=== PATIENT | female | born 1950 | race Caucasian/White ===

== ENCOUNTER 2016-07-31 18:33 | Emergency (ER) | payer MEDICARE, OTHER ==
[~2016-07-31] VITALS: Ht 160 cm; Wt 74.4 kg
[2016-07-31] MEDS ORDERED: CLINDAMYCIN 150 MG CAP PO ONE (20:00)
[2016-07-31 20:13] LABS: BASO % 0.7 % (0.0-1.0); EOS % 0.8 % (0.0-3.0); LARGE UNSTAINED CELL # 0.2 K/mm3 (0.0-0.4); LARGE UNSTAINED CELL % 3.8 % (0.0-4.0); LYMPH # 1.4 K/mm3 (1.5-4.5); LYMPH % 32.7 % (24.0-44.0); MEAN CORPUSCULAR HEMOGLOBIN 28.7 pg (27.0-33.0); MEAN CORPUSCULAR HGB CONC 33.7 g/dl (32.0-36.5); MEAN CORPUSCULAR VOLUME 85.2 fl (80.0-96.0); MONO # 0.2 K/mm3 (0.0-0.8); MONO % 6.2 % (0.0-5.0); NEUTROPHILS # 2.2 K/mm3 (1.8-7.7); NEUTROPHILS % 55.8 % (36.0-66.0); PLATELET COUNT, AUTOMATED 151 k/mm3 (150-450); RED CELL DISTRIBUTION WIDTH 12.8 % (11.5-14.5); WHITE BLOOD COUNT 3.9 K/mm3 (4.0-10.0)
--- NOTE | 2016-07-31 21:00 | REPUSA ---
Clinical history: mandibular abscess/mass. Findings: Real-time ultrasound imaging of the left mandible was performed. Normal heterogeneous fibro glandular tissue is noted. No focal defined mass or cystic lesion is appreciated. No evidence of calc ifications are appreciated. Several prominent lymph nodes are noted, the largest measuring 1.1 x 0.8 x 0.7 cm. Impression: No abscess or mass identified. Several subcentimeter submandibular lymph nodes appreciate d.
[2016-07-31] MEDS ORDERED: CLEO300C2 PO (21:18)
[2016-07-31 21:40] VITALS: BP 150/80
== END 2016-07-31 21:41 | disposition home or self-care (01) ==
LOC: M ED 20:16
DX: L03.211 Cellulitis of face (principal); K08.409 Partial loss of teeth, unspecified cause, unspecified class; Z87.891 Personal history of nicotine dependence; Z88.0 Allergy status to penicillin; Z88.1 Allergy status to other antibiotic agents; Z88.2 Allergy status to sulfonamides

== ENCOUNTER → 2016-10-12 | Outpatient (CLI) | payer MEDICARE ==
[~2016-10-12] MED LIST: CLEO300C2 PO
--- NOTE | 2016-10-12 19:15 | REP ---
Chest two views HISTORY: Chest pain Comparison: 01/03/2015 A minimal increase in interstitial markings is present in the lungs consistent with chronic interstitial change. The heart is normal in size. The pulmonary vasculature is normal in appearance. The bony structure is intact. IMPRESSION: Chronic interstitial change. Signed by Evert Dimas MD 10/12/2016 07:06 P
== END ==
LOC: M WUC 18:41
PROVIDERS: ATTEND Physician Assistant
DX: R07.9 Chest pain, unspecified (principal)

== ENCOUNTER 2016-11-12 20:40 | Emergency (ER) | payer MEDICARE ==
[~2016-11-12] VITALS: Ht 160 cm; Wt 75.3 kg
[2016-11-12 22:24] LABS: BASO % 0.6 % (0.0-1.0); EOS # 0.1 K/mm3 (0.0-0.50); EOS % 2.5 % (0.0-3.0); LARGE UNSTAINED CELL # 0.1 K/mm3 (0.0-0.4); LARGE UNSTAINED CELL % 2.4 % (0.0-4.0); LYMPH # 1.7 K/mm3 (1.5-4.5); LYMPH % 28.7 % (24.0-44.0); MEAN CORPUSCULAR HGB CONC 34.3 g/dl (32.0-36.5); MEAN CORPUSCULAR VOLUME 87.2 fl (80.0-96.0); MONO # 0.2 K/mm3 (0.0-0.8); MONO % 3.9 % (0.0-5.0); NEUTROPHILS # 3.3 K/mm3 (1.8-7.7); NEUTROPHILS % 61.9 % (36.0-66.0); PLATELET COUNT, AUTOMATED 213 k/mm3 (150-450); RED CELL DISTRIBUTION WIDTH 13.5 % (11.5-14.5); WHITE BLOOD COUNT 5.3 K/mm3 (4.0-10.0)
[2016-11-12 22:48] LABS: MAGNESIUM LEVEL 2.1 MG/DL (1.8-2.4); PHOSPHORUS LEVEL 2.6 MG/DL (2.5-4.9)
[2016-11-12 22:53] LABS: ANION GAP 6 MEQ/L (8-16); BLOOD UREA NITROGEN 16 MG/DL (7-18); CALCIUM LEVEL 10.1 MG/DL (8.8-10.2); CARBON DIOXIDE LEVEL 23 MEQ/L (21-32); CHLORIDE LEVEL 112 MEQ/L (98-107); CREATININE FOR GFR 0.55 MG/DL (0.55-1.02); FREE T4 0.94 NG/DL (0.76-1.46); GLOMERULAR FILTRATION RATE > 60.0 (>45); GLUCOSE, FASTING 97 MG/DL (80-110); POTASSIUM SERUM 3.6 MEQ/L (3.5-5.1); SODIUM LEVEL 141 MEQ/L (136-145)
[2016-11-12 23:43] VITALS: BP 128/69
--- NOTE | 2016-11-13 06:36 | ECGEPIP ---
Stationary ECG Study [facility] - ED Test Date: 2016-11-12 Pat Name: BARBARA FOSTER Department: Room: - Gender: F [employer] Paver: tr : 1950 Requested By: BYRON Ferreira Order Number: [id number] Reading MD: Chito Manuel Measurements Intervals [place] Rate: 70 P: 66 MS: 168 QRS: 35 QRSD: 89 T: 57 QT: 374 QTc: 405 Interpretive Statements SINUS RHYTHM NSTTW ABNORMALITIES Electronically Signed On 11-13-2016 6:36:35 EDT by Chito Manuel
--- NOTE | 2016-11-13 09:05 | REP ---
TWO VIEW CHEST: COMPARISON: 10/12/2016. Two views of the chest are performed. There is mild apical pleural scarring and thickening. There is mild bibasilar interstitial fibrotic scarring. There is no acute infiltrate. Heart is normal in size. Mediastinal silhouette is unremarkable and unchanged. There are minor degenerative changes of the spine. IMPRESSION: Mild chronic changes without evidence of acute pulmonary disease. Signed by Dallin Colon MD 11/13/2016 05:21 P
== END 2016-11-13 | disposition home or self-care (01) ==
LOC: M ED 20:40
DX: R00.2 Palpitations (principal); R94.31 Abnormal electrocardiogram [ECG] [EKG]; I10 Essential (primary) hypertension; J45.909 Unspecified asthma, uncomplicated; M54.5 Low back pain; Z88.0 Allergy status to penicillin; Z88.2 Allergy status to sulfonamides; Z88.1 Allergy status to other antibiotic agents

== ENCOUNTER → 2016-12-02 | Outpatient (REF) | payer MEDICARE ==
[~2016-12-02] MED LIST changes: +CHEW500C2 PO; +TYLE325T5 PO
== END ==
LOC: M SFHCWAGY 15:15
PROVIDERS: ATTEND Nurse Practitioner Family
DX: Z12.4 Encounter for screening for malignant neoplasm of cervix (principal)

== ENCOUNTER → 2016-12-08 | Outpatient (CLI) | payer MEDICARE ==
--- NOTE | 2016-12-10 10:52 | DEXA ---
AP SPINE L1 - L4 0.802 -3.2 -1.6 LT FEMUR TOTAL 0.670 -2.7 -1.4 RT FEMUR TOTAL 0.703 -2.4 -1.2 TOTAL BODY TOTAL OTHER DUAL FEMUR FRAX* ASSESSMENT Risk factors: Not performed. 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 FOLLOW-UP: Recommendation for the next bone density exam: 2 years. MTDD
== END ==
LOC: M WHC 14:08
PROVIDERS: ATTEND Nurse Practitioner Family
DX: N95.9 Unspecified menopausal and perimenopausal disorder (principal); M81.0 Age-related osteoporosis without current pathological fracture

== ENCOUNTER → 2017-01-18 | Outpatient (CLI) | payer MEDICARE ==
[2017-01-18 10:12] LABS: BASO % 0.8 % (0.0-1.0); EOS # 0.1 K/mm3 (0.0-0.50); EOS % 3.2 % (0.0-3.0); LARGE UNSTAINED CELL # 0.1 K/mm3 (0.0-0.4); LARGE UNSTAINED CELL % 2.2 % (0.0-4.0); LYMPH # 1.4 K/mm3 (1.5-4.5); LYMPH % 29.2 % (24.0-44.0); MEAN CORPUSCULAR HEMOGLOBIN 29.4 pg (27.0-33.0); MEAN CORPUSCULAR HGB CONC 33.5 g/dl (32.0-36.5); MEAN CORPUSCULAR VOLUME 87.9 fl (80.0-96.0); MONO # 0.2 K/mm3 (0.0-0.8); MONO % 4.8 % (0.0-5.0); NEUTROPHILS # 2.6 K/mm3 (1.8-7.7); NEUTROPHILS % 59.8 % (36.0-66.0); PLATELET COUNT, AUTOMATED 213 k/mm3 (150-450); RED CELL DISTRIBUTION WIDTH 12.9 % (11.5-14.5); WHITE BLOOD COUNT 4.4 K/mm3 (4.0-10.0)
[2017-01-18 10:33] LABS: ALBUMIN 3.7 GM/DL (3.2-5.2); ALBUMIN/GLOBULIN RATIO 1.16 (1.00-1.93); ALKALINE PHOSPHATASE 108 U/L (45-117); ALT/SGPT 27 U/L (12-78); ANION GAP 8 MEQ/L (8-16); AST/SGOT 9 U/L (15-37); BILIRUBIN,TOTAL 0.3 MG/DL (0.2-1.0); BLOOD UREA NITROGEN 13 MG/DL (7-18); CARBON DIOXIDE LEVEL 25 MEQ/L (21-32); CHLORIDE LEVEL 112 MEQ/L (98-107); CREATININE FOR GFR 0.59 MG/DL (0.55-1.02); GLOMERULAR FILTRATION RATE > 60.0 (>45); GLUCOSE, FASTING 75 MG/DL (80-110); POTASSIUM SERUM 4.1 MEQ/L (3.5-5.1); SODIUM LEVEL 145 MEQ/L (136-145); TOTAL PROTEIN 6.9 GM/DL (6.4-8.2)
[2017-01-18 10:44] LABS: ERYTHROCYTE SEDIMENTATION RATE 6 mm/hr (0-30)
== END ==
LOC: M LAB 09:10
PROVIDERS: ATTEND Psychiatry & Neurology Neurology
DX: R51 Headache (principal)

== ENCOUNTER 2017-01-25 22:21 | Emergency (ER) | payer MEDICARE ==
[~2017-01-25] VITALS: Ht 160 cm; Wt 72.7 kg
[~2017-01-25 22:21] MED LIST changes: -CHEW500C2 PO; -TYLE325T5 PO
[2017-01-25] MEDS ORDERED: CHEW500C2 PO (22:39)
[2017-01-25] MEDS ORDERED: TYLE325T5 PO (22:49)
--- NOTE | 2017-01-26 00:30 | REPUSA ---
CLINICAL HISTORY: Headaches. TECHNIQUE: Multiple axial brain CT scan sections were obtained from base to vertex without contrast a dministration. COMMENTS: The study shows normal configuration of sella turcica. There are no intra or extra-axial collections. There is no mass effect or midline shift. There is no evidence of hematoma formation. No hydrocephal us is present. No abnormal calcifications are noted. No significant abnormalities are seen either in the posterior fossa or supratentorial compartment. The sinuses and mastoid air cells are patent. IMPRESSION: No evidence of acute intracranial pathology. No changes noted since the prior exam on 07/24/2008. Thank you for your kind referral of this patient.
[2017-01-26 01:56] VITALS: BP 176/73
== END 2017-01-26 02:03 | disposition home or self-care (01) ==
LOC: M ED 22:21
DX: G43.909 Migraine, unspecified, not intractable, without status migrainosus (principal); Z79.899 Other long term (current) drug therapy; Z88.0 Allergy status to penicillin; Z88.2 Allergy status to sulfonamides; Z88.1 Allergy status to other antibiotic agents

== ENCOUNTER 2018-05-23 20:58 | Emergency (ER) | payer MEDICARE, OTHER ==
[~2018-05-23] VITALS: Ht 160 cm; Wt 70.0 kg
[~2018-05-23 20:58] MED LIST changes: +CHEW500C2 PO; +TYLE325T5 PO
[2018-05-23] MEDS ORDERED: VITA200016 PO (21:01)
[2018-05-23 21:43] LABS: BASO % 0.6 % (0.0-1.0); EOS # 0.2 10^3/uL (0.0-0.50); EOS % 3.2 % (0.0-3.0); HEMOGLOBIN 13.1 g/dl (12.0-15.5); LYMPH # 2.1 10^3/uL (1.5-4.5); LYMPH % 33.3 % (24.0-44.0); MEAN CORPUSCULAR HEMOGLOBIN 28.4 pg (27.0-33.0); MEAN CORPUSCULAR HGB CONC 32.8 g/dl (32.0-36.5); MEAN CORPUSCULAR VOLUME 86.8 fl (80.0-96.0); MONO # 0.3 10^3/uL (0.0-0.8); MONO % 5.3 % (0.0-5.0); NEUTROPHILS # 3.6 10^3/uL (1.8-7.7); NEUTROPHILS % 57.3 % (36.0-66.0); PLATELET COUNT, AUTOMATED 239 10^3/uL (150-450); RED BLOOD COUNT 4.61 10^6/uL (4.00-5.40); WHITE BLOOD COUNT 6.3 10^3/uL (4.0-10.0)
[2018-05-23 21:53] LABS: INR 1.09; PROTHROMBIN TIME 14.2 SECONDS (12.1-14.4)
[2018-05-23 21:54] LABS: PARTIAL THROMBOPLASTIN TIME 32.7 SECONDS (25.4-37.6)
[2018-05-23 22:13] LABS: BLOOD UREA NITROGEN 12 MG/DL (7-18); CALCIUM LEVEL 9.7 MG/DL (8.8-10.2); CARBON DIOXIDE LEVEL 24 MEQ/L (21-32); CHLORIDE LEVEL 110 MEQ/L (98-107); CK-MB VALUE MASS < 1.0 NG/ML (<3.6); CPK CREATINE PHOSPHOKINASE 46 U/L (26-192); CREATININE FOR GFR 0.74 MG/DL (0.55-1.30); GLOMERULAR FILTRATION RATE > 60.0 (>45); GLUCOSE, FASTING 112 MG/DL (70-100); MB/CK RELATIVE INDEX 2.17 (< OR =4); POTASSIUM SERUM 4.3 MEQ/L (3.5-5.1); SODIUM LEVEL 140 MEQ/L (136-145); TROPONIN I < 0.02 NG/ML (< 0.10)
[2018-05-23] MEDS ORDERED: ISOVUE-370 76% 100ML VIAL (Q9967) As Ordered ONE (23:42)
--- NOTE | 2018-05-23 23:59 | REPVR ---
EXAM: CT Angiography Chest With Contrast EXAM DATE/TIME: 05/23/2018 11:02 PM CLINICAL HISTORY: 67 years old, female; Pain; Chest pain; Type not specified; Additional info: Dysp TECHNIQUE: Axial computed tomographic angiography images of the chest with intravenous contrast using CT angiography protocol. All CT scans at this facility use at least one of these dose optimization techniques: automated exposure control; mA and/or kV adjustment per patient size (includes targeted exams where dose is matched to clinical indication); or iterative reconstruction. Coronal and sagittal reformatted images were created and reviewed. MIP reconstructed images were created and reviewed. CONTRAST: 75 ml of iso administered intravenously. COMPARISON: CR Chest, 2 view PA, Lat 11/12/2016 10:34 PM FINDINGS: Pulmonary arteries: No pulmonary embolus. Aorta: No aortic dissection or aneurysm. The aorta demonstrates mild atherosclerotic calcification. Lungs: Bilateral apical pleural-parenchymal scarring. Bilateral groundglass opacities may represent mosaic perfusion versus atelectasis. Pleural space: Normal. No pneumothorax. No pleural effusion. Heart: Normal. No cardiomegaly. No pericardial effusion. Gallbladder and bile ducts: Cholelithiasis. Lymph nodes: Unremarkable. No enlarged lymph nodes. Bones/joints: The spine demonstrates mild degenerative changes. Soft tissues: Unremarkable. IMPRESSION: 1. No pulmonary embolus. 2. No aortic dissection or aneurysm. 3. Possible mosaic perfusion as described above. Electronically signed by: Armando Powell On 05/23/2018 23:59:11 PM
[2018-05-24] VITALS: BP 180/87
--- NOTE | 2018-05-25 13:40 | ED PDOC ---
Post-Departure Follow-Up dr solomon faxed formal report of cta for fu Sheba Quezada MD May 25, 2018 13:40
--- NOTE | 2018-05-25 17:22 | ECGEPIP ---
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
== END 2018-05-24 00:33 | disposition home or self-care (01) ==
LOC: M ED 20:58
DX: F41.9 Anxiety disorder, unspecified (principal); R94.31 Abnormal electrocardiogram [ECG] [EKG]; Z88.0 Allergy status to penicillin; Z88.1 Allergy status to other antibiotic agents; Z88.2 Allergy status to sulfonamides
CPT/HCPCS: 36415; 36600; 71275; 80048; 82550; 82553; 84484; 85025; 85610; 85730; 93005; 99284; Q9967

== ENCOUNTER → 2018-09-15 | Outpatient (CLI) | payer OTHER ==
[~2018-09-15] MED LIST changes: +METHACHOLINE KIT (J7674) INH ONE; +VITA200016 PO
--- NOTE | 2018-09-15 14:42 | PFTRPT ---
Height: 63.00 Inches Weight: 158.00 Lbs BSA: 1.75 Diagnosis: R06.00 DATE OF STUDY: 09/15/2018 ORDERED BY: Aileen Rodriguez INTERPRETATION: Study of excellent technical quality. Under protocol, methacholine was administered. At a dose of 2.5 mg (13.875 CDUs), a 23% decline in the FEV1 was noted. PC of 1.53 is significant. Flow rates did return to baseline post bronchodilator administration. IMPRESSION: Positive methacholine challenge study. MTDD
== END ==
LOC: M CARPUL 13:42
PROVIDERS: ATTEND Nurse Practitioner Family
DX: R94.2 Abnormal results of pulmonary function studies (principal)
CPT/HCPCS: 94070; 95070; J7674

== ENCOUNTER 2018-11-26 09:23 | Emergency (ER) | payer OTHER ==
[~2018-11-26] VITALS: Ht 160 cm; Wt 69.5 kg
[~2018-11-26 09:23] MED LIST changes: -METHACHOLINE KIT (J7674) INH ONE
[2018-11-26] MEDS ORDERED: ISOVUE-370 76% 100ML VIAL (Q9967) As Ordered ONE (12:20)
[2018-11-26 12:24] LABS: HEMATOCRIT 43.4 % (36.0-47.0); HEMOGLOBIN 14.2 g/dl (12.0-15.5); MEAN CORPUSCULAR HEMOGLOBIN 29.1 pg (27.0-33.0); MEAN CORPUSCULAR HGB CONC 32.7 g/dl (32.0-36.5); MEAN CORPUSCULAR VOLUME 88.9 fl (80.0-96.0); PLATELET COUNT, AUTOMATED 218 10^3/uL (150-450); RED BLOOD COUNT 4.88 10^6/uL (4.00-5.40); WHITE BLOOD COUNT 5.4 10^3/uL (4.0-10.0)
[2018-11-26 12:39] LABS: BLOOD UREA NITROGEN 11 MG/DL (7-18); CARBON DIOXIDE LEVEL 27 MEQ/L (21-32); CHLORIDE LEVEL 112 MEQ/L (98-107); CREATININE FOR GFR 0.55 MG/DL (0.55-1.30); GLOMERULAR FILTRATION RATE > 60.0 (>45); GLUCOSE, FASTING 86 MG/DL (70-100); POTASSIUM SERUM 4.3 MEQ/L (3.5-5.1); SODIUM LEVEL 142 MEQ/L (136-145)
--- NOTE | 2018-11-26 14:08 | REPVR ---
EXAM: CT Neck With Contrast EXAM DATE/TIME: 11/26/2018 12:22 PM CLINICAL HISTORY: 68 years old, female; Dysphagia / difficulty swallowing; Additional info: Dysphagia, RO food impaction TECHNIQUE: Imaging protocol: Axial computed tomography images of the neck with intravenous contrast. Coronal and sagittal reformatted images were created and reviewed. Radiation optimization: All CT scans at this facility use at least one of these dose optimization techniques: automated exposure control; mA and/or kV adjustment per patient size (includes targeted exams where dose is matched to clinical indication); or iterative reconstruction. Contrast material: ISOVUE 370;Contrast volume: 75 ml;Contrast route: IV; COMPARISON: Thyroid, ST head+neck US 07/31/2016 8:37 PM FINDINGS: Nasopharynx: Normal. Oropharynx: Normal. No significant tonsillar enlargement. Hypopharynx: Normal. Larynx: Normal. Normal epiglottis. Retropharyngeal space: Normal. Submandibular/Parotid glands: Normal. Glands are normal in size. Thyroid: Normal. No enlarged or calcified nodules. Lymph nodes: Normal. No lymphadenopathy. Trachea: Visualized trachea is unremarkable. Lungs: Normal as visualized. Bones/joints: Degenerative changes noted of the cervical spine. Straightening of the normal cervical lordosis. Soft tissues: Normal. No significant soft tissue swelling. IMPRESSION: No acute findings. No evidence of food impaction in the visualized portion of the esophagus Electronically signed by: Leilani Hernandez On 11/26/2018 14:07:59 PM
[2018-11-26 14:20] VITALS: BP 164/87
== END 2018-11-26 14:23 | disposition home or self-care (01) ==
LOC: M ED 09:23
DX: R13.10 Dysphagia, unspecified (principal); J45.909 Unspecified asthma, uncomplicated; I10 Essential (primary) hypertension; Z88.0 Allergy status to penicillin; Z88.1 Allergy status to other antibiotic agents; Z88.2 Allergy status to sulfonamides
CPT/HCPCS: 36415; 70491; 80047; 80048; 85027; 99284; Q9967

== ENCOUNTER 2018-12-27 09:11 | Emergency (ER) | payer OTHER ==
[~2018-12-27] VITALS: Ht 160 cm; Wt 74.1 kg
[2018-12-27 09:55] LABS: BASO % 0.6 % (0.0-1.0); EOS # 0.1 10^3/uL (0.0-0.50); EOS % 2.1 % (0.0-3.0); HEMATOCRIT 40.4 % (36.0-47.0); HEMOGLOBIN 13.3 g/dl (12.0-15.5); LYMPH # 1.1 10^3/uL (1.5-4.5); LYMPH % 16.6 % (24.0-44.0); MEAN CORPUSCULAR HEMOGLOBIN 29.2 pg (27.0-33.0); MEAN CORPUSCULAR HGB CONC 32.9 g/dl (32.0-36.5); MEAN CORPUSCULAR VOLUME 88.8 fl (80.0-96.0); MONO # 0.2 10^3/uL (0.0-0.8); MONO % 3.6 % (0.0-5.0); NEUTROPHILS # 5.1 10^3/uL (1.8-7.7); NEUTROPHILS % 76.4 % (36.0-66.0); PLATELET COUNT, AUTOMATED 198 10^3/uL (150-450); RED BLOOD COUNT 4.55 10^6/uL (4.00-5.40); WHITE BLOOD COUNT 6.7 10^3/uL (4.0-10.0)
[2018-12-27 10:06] LABS: INR 1.12; PARTIAL THROMBOPLASTIN TIME 32.2 SECONDS (25.0-38.4); PROTHROMBIN TIME 14.1 SECONDS (11.8-14.0)
[2018-12-27 10:17] LABS: ALBUMIN 3.7 GM/DL (3.2-5.2); BILIRUBIN,DIRECT 0.1 MG/DL (0.0-0.2); BILIRUBIN,TOTAL 0.4 MG/DL (0.2-1.0); TOTAL PROTEIN 6.5 GM/DL (6.4-8.2)
--- NOTE | 2018-12-27 10:26 | REP ---
CT of the head without contrast Indication: Fall. Comparison: Head CT of 01/25/2017. Technique: Axial CT of the head was performed without contrast. Findings: There is posterior scalp soft tissue swelling/hematoma at the vertex without underlying calvarial fracture. There is no evidence of acute intracranial hemorrhage or extra-axial fluid collection. Colon-white matter differentiation is maintained. There is no mass effect or midline shift. The basal cisterns are patent. There is no hydrocephalus. The visualized paranasal sinuses and mastoid air cells are clear. Impression: Posterior scalp soft tissue swelling/hematoma at the vertex without underlying calvarial fracture. No acute intracranial abnormality. Electronically Signed by Patricia Leary MD 12/27/2018 10:18 A
--- NOTE | 2018-12-27 10:36 | REP ---
CT of the cervical spine without contrast Indication: Fall. Comparison: CT of the cervical spine 01/19/2013. Technique: Axial CT and cervical spine was performed without contrast. Bone reformatted images were provided in the axial, coronal and sagittal planes. Findings: There is no acute fracture or subluxation of the cervical spine. There are multilevel degenerative changes including multilevel disc osteophyte complex formation and bilateral facet arthropathy, most notably at C5-C6 and C6-C7 with narrowing of the spinal canal. 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 There is ankylosis of the C2-C3 facets on the right. There is diffuse heterogeneity of the bones, likely related to diffuse bone demineralization. Note is made of small cervical lymph nodes bilaterally. The paraspinal soft tissues are within normal limits. The upper airway is patent. There is pleural parenchymal scarring within the lung apices. Impression: No acute fracture or subluxation of the cervical spine. Multilevel cervical spondylosis, most notably at C5-C6 and C6-C7 with narrowing of the spinal canal. Electronically Signed by Patricia Leary MD 12/27/2018 10:28 A
[2018-12-27] MEDS: ACETAMINOPHEN 325 MG TAB PO ONE ×2 (10:37→10:41)
--- NOTE | 2018-12-27 10:50 | REP ---
CT of the chest without IV contrast: There is no pneumothorax, hemothorax or pulmonary contusion. There is no mediastinal hematoma. There is no clavicle, scapula, rib, vertebral or sternal fracture. The unenhanced thoracic aorta is unremarkable. The cardiac size is normal. The visualized upper abdomen. There are multiple gallbladder calculi. The visualized portions of the unenhanced liver, pancreas, spleen, adrenals and renal upper poles are unremarkable except for a nonobstructive left renal upper pole calculus. Impression: Essentially negative CT study of the chest. Cholelithiasis. Left renal lithiasis Electronically Signed by Dallin Pool MD 12/27/2018 10:42 A
--- NOTE | 2018-12-27 11:33 | REP ---
BILATERAL HIPS: AP and frog-leg views of bilateral hips performed. There is no acute fracture, dislocation or intrinsic bone disease. There is sclerosis of the pubic symphysis. IMPRESSION: No acute fracture or dislocation. Electronically Signed by Dallin Colon MD 12/28/2018
--- NOTE | 2018-12-27 11:52 | REP ---
PELVIS, SINGLE VIEW: AP view of the pelvis is performed and demonstrates no fracture, dislocation, or intrinsic bone disease. There is sclerosis of the pubic symphysis. IMPRESSION: No evidence of acute fracture or dislocation. Electronically Signed by Dallin Colon MD 12/28/2018 12:01 A
[2018-12-27 12:42] VITALS: BP 162/80
--- NOTE | 2018-12-27 15:16 | REP ---
Portable chest, 09:43 a.m., single AP view with the patient semi upright: Comparison is 11/12/2016. The lung astorga are clear. The cardiac size is normal. The shannan, mediastinum, and skeletal structures are unremarkable. There is no pneumothorax, hemothorax or pulmonary contusion. Impression: Negative portable chest. Electronically Signed by Dallin Pool MD 12/27/2018 10:00 A
--- NOTE | 2018-12-27 18:51 | ECGEPIP ---
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
--- NOTE | 2018-12-28 09:27 | ED PDOC ---
Post-Departure Follow-Up dr solomon faxed formal report of ct chest for fu Sheba Quezada MD Dec 28, 2018 09:27
== END 2018-12-27 13:02 | disposition home or self-care (01) ==
LOC: M ED 09:11
DX: S06.0X0A Concussion without loss of consciousness, initial encounter (principal); S16.1XXA Strain of muscle, fascia and tendon at neck level, initial encounter; S70.01XA Contusion of right hip, initial encounter; S20.219A Contusion of unspecified front wall of thorax, initial encounter; V68.4XXA Person boarding or alighting a heavy transport vehicle injured in noncollision transport accident, initial encounter; Y92.093 Driveway of other non-institutional residence as the place of occurrence of the external cause; R51 Headache; I10 Essential (primary) hypertension; Z88.0 Allergy status to penicillin; Z88.2 Allergy status to sulfonamides; Z88.1 Allergy status to other antibiotic agents

== ENCOUNTER → 2019-02-17 | Outpatient (CLI) | payer OTHER ==
--- NOTE | 2019-02-17 16:07 | REP ---
Left shoulder: Four views. History: Injury left shoulder. Findings: Four views of the left shoulder demonstrate normal alignment of the glenohumeral and acromioclavicular joints. There is diffuse osteopenia. No fracture or subluxation is seen. Impression: Diffuse osteopenia. Otherwise negative left shoulder radiographs. Electronically Signed by Chiki Mckenna MD 02/17/2019 03:59 P
--- NOTE | 2019-02-17 16:08 | REP ---
Left humerus: Three views. History: Injury. Findings: The three views of the left humerus demonstrate diffuse osteopenia. No fracture or subluxation is seen. Impression: No fracture noted. Electronically Signed by Chiki Mckenna MD 02/17/2019 04:00 P
== END ==
LOC: M LRY 15:30
PROVIDERS: ATTEND Physician Assistant
DX: S49.92XA Unspecified injury of left shoulder and upper arm, initial encounter (principal); M85.812 Other specified disorders of bone density and structure, left shoulder; X58.XXXA Exposure to other specified factors, initial encounter; Y92.9 Unspecified place or not applicable

== ENCOUNTER 2019-02-25 11:06 | Emergency (ER) | payer OTHER ==
[~2019-02-25] VITALS: Ht 160 cm; Wt 72.3 kg
[2019-02-25] MEDS ORDERED: NS 500 ML IV ONE (11:30)
[2019-02-25] MEDS ORDERED: ISOVUE-370 76% 100ML VIAL (Q9967) As Ordered ONE (11:39)
[2019-02-25 11:42] LABS: BASO % 0.9 % (0.0-1.0); EOS # 0.1 10^3/uL (0.0-0.5); EOS % 2.8 % (0.0-3.0); HEMATOCRIT 43.1 % (36.0-47.0); HEMOGLOBIN 14.4 g/dl (12.0-15.5); LYMPH # 1.6 10^3/uL (1.5-5.0); LYMPH % 35.6 % (24.0-44.0); MEAN CORPUSCULAR HEMOGLOBIN 29.1 pg (27.0-33.0); MEAN CORPUSCULAR HGB CONC 33.4 g/dl (32.0-36.5); MEAN CORPUSCULAR VOLUME 87.2 fl (80.0-96.0); MONO # 0.3 10^3/uL (0.0-0.8); MONO % 7.1 % (0.0-5.0); NEUTROPHILS # 2.3 10^3/uL (1.5-8.5); NEUTROPHILS % 53.4 % (36.0-66.0); PLATELET COUNT, AUTOMATED 239 10^3/uL (150-450); RED BLOOD COUNT 4.94 10^6/uL (4.00-5.40); WHITE BLOOD COUNT 4.4 10^3/uL (4.0-10.0)
[2019-02-25] MEDS ORDERED: ASPIRIN 81 MG CHEW TABLET PO ONE (11:45)
[2019-02-25 12:09] LABS: ALBUMIN 3.8 GM/DL (3.2-5.2); ALT/SGPT 25 U/L (12-78); BILIRUBIN,DIRECT < 0.1 MG/DL (0.0-0.2); BILIRUBIN,TOTAL 0.4 MG/DL (0.2-1.0); CK-MB VALUE MASS < 1.0 NG/ML (<3.6); CPK CREATINE PHOSPHOKINASE 30 U/L (26-192); MB/CK RELATIVE INDEX 3.33 (< OR =4); TOTAL PROTEIN 7.2 GM/DL (6.4-8.2); TROPONIN I < 0.02 NG/ML (< 0.10)
--- NOTE | 2019-02-25 12:51 | REP ---
CT ANGIOGRAM CHEST: TECHNIQUE: Axial contrast enhanced images from the thoracic inlet to the upper abdomen using 100 mL Isovue 370 intravenous contrast material with multiplanar reformations. There is no CT evidence of pulmonary embolism. There is no thoracic aortic aneurysm or dissection. The heart is not enlarged. There is no pleural or pericardial effusion. There is no mediastinal, hilar, or chest wall lymphadenopathy. There is a small hiatal hernia. Mild scattered fibrotic changes are seen in the lungs without evidence of acute infiltrate. There are degenerative changes of the spine. Gallstone is again noted in the visualized gallbladder. IMPRESSION: No CT evidence of pulmonary embolism or aortic dissection. No acute infiltrate in the lungs. Small hiatal hernia. Gallstone seen in the visualized gallbladder. Electronically Signed by Dallin Colon MD 02/25/2019 05:13 P
--- NOTE | 2019-02-25 12:51 | REP ---
CHEST: Single view. There is no evidence of acute infiltrate. No pleural effusion is seen. The heart is normal in size. The mediastinal silhouette is unremarkable. The visualized osseous structures are intact. IMPRESSION: No acute pulmonary disease. Electronically Signed by Dallin Colon MD 02/25/2019 05:13 P
--- NOTE | 2019-02-25 12:53 | REP ---
LEFT SHOULDER, THREE VIEWS: Three views of left shoulder performed. There is mild narrowing of the acromioclavicular joint. There is no acute fracture, dislocation, or intrinsic bone disease. IMPRESSION: No acute fracture or dislocation. Electronically Signed by Dallin Colon MD 02/25/2019 05:13 P
--- NOTE | 2019-02-25 12:53 | REP ---
LEFT HUMERUS: Two views. There is no evidence of an acute fracture, dislocation or intrinsic bone disease. IMPRESSION: No fracture or dislocation. Electronically Signed by Dallin Colon MD 02/25/2019 05:13 P
[2019-02-25] MEDS ORDERED: ACETAMINOPHEN TAB 650MG DOSE (2X325MG) As Ordered ONE (12:55)
[2019-02-25 13:00] VITALS: BP 152/78
[2019-02-25] MEDS ORDERED: ACETAMINOPHEN TAB 650MG DOSE (2X325MG) PO ONE (13:15)
--- NOTE | 2019-02-25 14:11 | ECGEPIP ---
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
== END 2019-02-25 13:04 | disposition home or self-care (01) ==
LOC: M ED 11:06
DX: R07.9 Chest pain, unspecified (principal); M54.9 Dorsalgia, unspecified; M25.512 Pain in left shoulder; I10 Essential (primary) hypertension; Z88.0 Allergy status to penicillin; Z88.2 Allergy status to sulfonamides; Z88.1 Allergy status to other antibiotic agents
CPT/HCPCS: 36415; 71045; 71275; 73030; 73060; 80047; 80076; 82550; 82553; 84484; 85025; 93005; 93041; 94760; 96360; 99285; Q9967

== ENCOUNTER → 2020-01-23 | Outpatient (CLI) | payer OTHER ==
--- NOTE | 2020-01-23 17:03 | REPMRS ---
Patient History The patient states she had a clinical breast exam in July 2019. Patient is postmenopausal. No known family history of cancer. 3D TOMOSYNTHESIS WAS PERFORMED. [facility] lifetime risk for breast cancer is 4.2%. SUDHAKAR Torres. Digital Woman Screen Mammo: January 23, 2020 - Exam #: [id number] Bilateral CC and MLO view(s) were taken. Technologist: Shira Mosley, Technologist No prior studies available for comparison. FINDINGS: There are scattered fibroglandular densities. There is a mild amount of residual fibroglandular tissue which is fairly symmetric. There is no dominant mass, architectural distortion, or clustered microcalcification suggestive of malignancy. Assessment: BI-RADS/ACR category 1 mammogram. Negative Mammogram. Recommendation Routine screening mammogram in 1 year (for women over age 40). This mammogram was interpreted with the aid of an FDA-approved computer-aided dectection system. Electronically Signed By: Dallin Colon MD 01/23/20 [id number]
== END ==
LOC: M WHC 15:19
PROVIDERS: ATTEND Nurse Practitioner Women's Health
DX: Z12.31 Encounter for screening mammogram for malignant neoplasm of breast (principal); Z78.0 Asymptomatic menopausal state

== ENCOUNTER 2020-06-01 11:46 | Emergency (ER) | payer MEDICARE, OTHER ==
[~2020-06-01] VITALS: Ht 160 cm; Wt 72.7 kg
[~2020-06-01 11:46] MED LIST changes: +CALC-362 PO; -CHEW500C2 PO
--- OUTSIDE RECORDS SUMMARY | 2020-06-01 11:52 | CCD ---
Author Author [facility] Organization [facility] Address Unknown Phone Unavailable Care Team Providers Care Brazer Induction Name Role Phone Barry Mancuso MD Unavailable Unavailable ShamboBarry MD Unavailable Unavailable ShamboBarry MD Unavailable Unavailable ShamboBarry MD Unavailable Unavailable ShamboBarry MD Unavailable Unavailable ShamboBarry MD Unavailable Unavailable ShamboBarry MD Unavailable Unavailable ShamboBarry MD Unavailable Unavailable ShamboBarry MD Unavailable Unavailable ShamboBarry MD Unavailable Unavailable ShamboBarry MD Unavailable Unavailable ShamBarry westfall MD Unavailable Unavailable ShamBarry westfall MD Unavailable Unavailable ShamBarry westfall MD Unavailable Unavailable ShamboBarry MD Unavailable Unavailable ShamboBarry MD Unavailable Unavailable ShamboBarry MD Unavailable Unavailable ShamboBarry MD Unavailable Unavailable Shambo, Barry Rausch MD Unavailable Unavailable Shambo, Barry Rausch MD Unavailable Unavailable Shambo, Barry Rausch MD Unavailable Unavailable Shambo, Barry Rausch MD Unavailable Unavailable Shambo, Barry Rausch MD Unavailable Unavailable Shambo, Barry Rausch MD Unavailable Unavailable Shambo, Barry Rausch MD Unavailable Unavailable Shambo, Barry Rausch MD Unavailable Unavailable Shambo, Barry Rausch MD Unavailable Unavailable Shambo, Barry Rausch MD Unavailable Unavailable Shambo, Barry Rausch MD Unavailable Unavailable Shambo, Barry Rausch MD Unavailable Unavailable Shambo, Barry Rausch MD Unavailable Unavailable Shambo, Barry Rausch MD Unavailable Unavailable Shambo, Barry Rausch MD Unavailable Unavailable Shambo, Barry Rausch MD Unavailable Unavailable Shambo, Barry Rausch MD Unavailable Unavailable Shambo, Barry Rausch MD Unavailable Unavailable Shambo, Barry Rausch MD Unavailable Unavailable Shambo, Barry Rausch MD Unavailable Unavailable Shambo, Barry Rausch MD Unavailable Unavailable Shambo, Barry Rausch MD Unavailable Unavailable Shambo, Barry Rausch MD Unavailable Unavailable Shambo, Barry Rausch MD Unavailable Unavailable Shambo, Barry Rausch MD Unavailable Unavailable Shambo, Barry Rausch MD Unavailable Unavailable Shambo, Barry Rausch MD Unavailable Unavailable Shambo, Barry Rausch MD Unavailable Unavailable Shambo, Barry Rausch MD Unavailable Unavailable Shambo, Barry Rausch MD Unavailable Unavailable Shambo, Barry Rausch MD Unavailable Unavailable Shambo, Barry Rausch MD Unavailable Unavailable Shambo, Barry Rausch MD Unavailable Unavailable Shambo, Barry Rausch MD Unavailable Unavailable Shambo, Barry Rausch MD Unavailable Unavailable Shambo, Barry Rausch MD Unavailable Unavailable Shambo, Barry Rausch MD Unavailable Unavailable Shambo, Barry Rausch MD Unavailable Unavailable Shambo, Barry Rausch MD Unavailable Unavailable Shambo, Barry Rausch MD Unavailable Unavailable Shambo, Barry Rausch MD Unavailable Unavailable Shambo, Barry Rausch MD Unavailable Unavailable Shambo, Barry Rausch MD Unavailable Unavailable Shambo, Barry Rausch MD Unavailable Unavailable Shambo, Barry Rausch MD Unavailable Unavailable Shambo, Barry Rausch MD Unavailable Unavailable WALEBRENT MD Unavailable Unavailable BRENT TATUM MD Unavailable Unavailable BRENT TATUM MD Unavailable Unavailable BRENT TATUM MD Unavailable Unavailable WALE, KENNEDY MD Unavailable Unavailable WALE, KENNEDY MD Unavailable Unavailable WALE, KENNEDY MD Unavailable Unavailable WALE, KENNEDY MD Unavailable Unavailable WALE, KENNEDY MD Unavailable Unavailable WALE, KENNEDY MD Unavailable Unavailable WALE, KENNEDY MD Unavailable Unavailable WALE, KENNEDY MD Unavailable Unavailable WALE, KENNEDY MD Unavailable Unavailable WALE, KENNEDY MD Unavailable Unavailable WALE, KENNEDY MD Unavailable Unavailable WALE, KENNEDY MD Unavailable Unavailable WALE, KENNEDY MD Unavailable Unavailable WALE, KENNEDY MD Unavailable Unavailable WALE, KENNEDY MD Unavailable Unavailable WALE, KENNEDY MD Unavailable Unavailable WALE, KENNEDY MD Unavailable Unavailable WALE, KENNEDY MD Unavailable Unavailable WALE, KENNEDY MD Unavailable Unavailable WALE, KENNEDY MD Unavailable Unavailable WALE, KENNEDY MD Unavailable Unavailable WALE, KENNEDY MD Unavailable Unavailable WALE, KENNEDY MD Unavailable Unavailable WALE, KENNEDY MD Unavailable Unavailable WALE, KENNEDY MD Unavailable Unavailable WALE, KENNEDY MD Unavailable Unavailable WALE, KENNEDY MD Unavailable Unavailable WALE, KENNEDY MD Unavailable Unavailable WALE, KENNEDY MD Unavailable Unavailable WALE, KENNEDY MD Unavailable Unavailable WALE, KENNEDY MD Unavailable Unavailable WALE, KENNEDY MD Unavailable Unavailable WALE, KENNEDY MD Unavailable Unavailable WALE, KENNEDY MD Unavailable Unavailable WALE, KENNEDY MD Unavailable Unavailable WALE, KENNEDY MD Unavailable Unavailable WALE, KENNEDY MD Unavailable Unavailable WALE, KENNEDY MD Unavailable Unavailable WALE, KENNEDY MD Unavailable Unavailable WALE, KENNEDY MD Unavailable Unavailable WALE, KENNEDY MD Unavailable Unavailable WALE, KENNEDY MD Unavailable Unavailable WALE, KENNEDY MD Unavailable Unavailable AWLE, KENNEDY MD Unavailable Unavailable WALE, KENNEDY MD Unavailable Unavailable WALE, KENNEDY MD Unavailable Unavailable WALE, KENNEDY MD Unavailable Unavailable WALE, KENNEDY MD Unavailable Unavailable WALE, KENNEDY MD Unavailable Unavailable WALE, KENNEDY MD Unavailable Unavailable Re-disclosure Warning The records that you are about to access may contain information from federally-assisted alcohol or drug abuse programs. If such information is present, then the following federally mandated warning applies: This information has been disclosed to you from records protected by federal confidentiality rules (42 CFR part 2). The federal rules prohibit you from making any further disclosure of this information unless further disclosure is expressly permitted by the written consent of the person to whom it pertains or as otherwise permitted by 42 CFR part 2. A general authorization for the release of medical or other information is NOT sufficient for this purpose. The Federal rules restrict any use of the information to criminally investigate or prosecute any alcohol or drug abuse patient.The records that you are about to access may contain highly sensitive health information, the redisclosure of which is protected by Article 27-F of the [facility] Public Health law. If you continue you may have access to information: Regarding HIV / AIDS; Provided by facilities licensed or operated by the [facility] Office of Mental Health; or Provided by the [facility] Office for People With Developmental Disabilities. If such information is present, then the following [facility] mandated warning applies: This information has been disclosed to you from confidential records which are protected by state law. State law prohibits you from making any further disclosure of this information without the specific written consent of the person to whom it pertains, or as otherwise permitted by law. Any unauthorized further disclosure in violation of state law may result in a fine or long term sentence or both. A general authorization for the release of medical or other information is NOT sufficient authorization for further disc losure. Allergies and Adverse Reactions Type Description Substance Reaction Status Data Source(s ) Propensity to adverse reactions VIT D-VIT E-SAFFLOWER OIL Vi t D-Vit E-Safflower Oil Rash High Active [facility] High Propensity to adverse reactions SULFA ANTIBIOTICS Sulfa Antibiotics Active [facility] Propensity to adverse reactions PENICILLIN G Penicillin G Active [facility] Propensity to adverse reactions LATEX Latex Acti ve [facility] Propensity to adverse reactions ERYTHROMYCIN Erythromycin Active [facility] Propensity to adverse reactions CIPROFLOXACIN Ciprofloxacin Active [facility] Erythromycin Erythromycin Erythromycin 500 MG Delayed Release Oral Tablet Rash Active eCW1 ([facility]) Tetanus Toxoid Adsorbed Tetanus Toxoid Adsorbed Tetanus Toxoid A dsorbed Rash/swelling Active eCW1 ([facility]) Latex Gloves Latex Gloves Latex Gloves Anaphylaxis Active eCW1 ( [facility]) Albuterol Sulfate HFA Albuterol Sulfate HFA Albuterol Sulfate HFA Tashi h Active eCW1 ([facility]) mushrooms mushrooms mushrooms Anaphylaxis Active eCW1 ([facility]) Bactrim Bactrim Bactrim Rash Active eCW1 (Pending sale to [facility]) Cipro Cipro Cipro h/a Active eCW1 (Pending sale to [facility]) Family History Family Member Name Family Member Gender Family Member Status Date o f Status Description Data Source(s) Unknown Male Problem MEDENT ([facility]) Unknown Unknown Problem MEDENT ([facility]) Unknown Unknown Problem MEDENT ([facility]) Unknown Unknown Encounters Encounter Providers Location Date Indications Data Source(s ) Outpatient Attender: BRENT TATUM MD [email or web address] 0 12:00:00 AM EST - 03/08/2020 02:22:38 PM EST [facility] Outpatient Attender: Shalom Mancuso MDReferrer: Shalom Mancuso MD 02/15/2020 02:38:00 PM EDT - 02/15/2020 03:02:00 PM EDT [facility] Outpatient Attender: BRENT TATUM MD [email or web address] 08/30/2019 10:56:[address] [facility] Outpatient Attender: Shalom Mancuso MDReferrer: Shalom Mancuso MD 07/27/2019 11:42:[address] [facility] Outpatient Attender: Shalom Mancuso MD 07/25/2019 03:00:00 P M EDT Z12.11,Z12.12 [facility] Z12.11,Z12.12 Outpatient Attender: Shalom Mancuso MD 07/20/2019 04:0 0:00 PM EDT Z12.11,Z12.12,I10 [facility] Z12.11,Z12.12,I10 Outpatient Attender: Shalom Mancuso MDReferrer: Shalom Mancuso MD 07/20/2019 12:56:00 PM EDT - 07/20/2019 01:20:00 PM EDT [facility] Outpatient Attender: Shalom SOLIMANeferrbecky: Shalom Mancuso MD 06/23/2019 10:55:00 AM EST - 06/23/2019 12:07:00 PM EST [address] [address] 06/19/2019 12:00:00 AM EST eCW1 ([facility]) Medications Medication Brand Name Start Date Product Form Dose Route Admi nistrative Instructions Pharmacy Instructions Status Indications Reaction Description Data Source(s) Famotidine 20 MG Oral Tablet Famotidine 06/23/2019 12:03:52 PM EST 20 MG active [facility] Famotidine 20 MG Oral Tablet Famotidine 06/23/2019 12:03:52 PM EST 20 MG completed [facility] Insurance Providers Payer name Policy type / Coverage type Policy ID Covered republican ID Covered republican's relationship to hernandez Policy Hernandez Plan Information HUMANA GOLD [id number] SP [id number] WELLCARE O [id number] S [id number] AETNA MEDICARE O [id number] WELLCARE MEDICARE [id number] WELLCARE MEDICARE [id number] [place] [id number] HUMANA GOLD O [id number] S [id number] HUMANA HMO [id number] SP [id number] MEDICARE [id number] SP [id number] AETNA MEDICARE [id number] SP [id number] 1BY BOOKER CLAIM ADMIN WORK COMP SP BOOKER CLAIM ADMIN WORK O [id number] S [id number] HUMANA HMO O [id number] S [id number] OTHER WORKERS COMPENSATI O [id number] O [id number] [employer] [id number] SP [id number] HUMANA HMO [id number] SP [id number] OTHER WORKERS COMPENSATION [id number] SP [id number] HUMANA GOLD [id number] SP [id number] Humana Gold Choice Commercial [id number] Self [id number] Medicare Blue Commercial [id number] Self [id number] HUMANA PPO [id number] SP [id number] HUMANA PPO [id number] SP [id number] MEDICARE BLUE PPO [id number] SP [id number] Blue Shield MCR Advantage Commercial [id number] Self [id number] Blue Shield MCR Advantage Commercial [id number] Self [id number] Blue Shield MCR Advantage Commercial [id number] Self [id number] EXCELLUS BCBS B [id number] S [id number] MEDICARE BLUE PPO [id number] SP [id number] Medicare Blue Ppo/Hmo Commercial [id number] Self [id number] MEDICARE BLUE PPO [id number] SP [id number] MEDICARE BLUE PPO 306 [id number] SP [id number] MEDICARE BLUE PPO 306 [id number] SP [id number] BS Medicare Blue Ppo/Hmo Commercial [id number] Self [id number] MEDICARE [id number] SP [id number] A [facility] [id number] SP [id number] [place]ON [place] [id number] SP [id number] JAYSON [id number] SP [id number] [facility] Medicare Commercial Self UNITED HEALTHCARE(MCAID) O [id number] S [id number] [facility] Health Maintenance Organization (HMO) Self [place]ARE [place] O [id number] S [id number] JA[place]ON [place] [id number] SP [id number] [employer] Health Maintenance Organization (HMO) Se lf SELF PAY UNAVAILABLE SP UNAVAILA BLE PMA MANAGEMENT [place] [facility] P [id number] S [id number] PMA MANAGEMENT [place] [facility] SKH [id number] SP [id number] BCBS OF [place] [id number] SP [id number] Problems, Conditions, and Diagnoses Code Display Name Description Problem Type Effective Dates Data Source(s) Z86.79 Personal history of other diseases of th e circulatory system Personal history of other diseases of th Diagnosis 03/08/2020 01:20:16 PM [facility] R55 Syncope and collapse Syncope and collapse Diagnosis 03/08/2020 01:20:[address] [facility] R94.31 Abnormal electrocardiogram [ECG] [EKG] A bnormal electrocardiogram (ECG) (EKG) Diagnosis 03/08/2020 01:20:16 PM [facility] R01.1 Cardiac murmur, unspecified Cardiac murmur, unspecifie d Diagnosis 03/08/2020 01:20:[address] [facility] R00.2 Palpitations Palpitations Diagnosis 03/08/2020 01:20:[address] [facility] R07.9 Chest pain, unspecified Chest pain, unspecified Diagno sis 03/08/2020 01:20:16 PM [facility] I10 Essential (primary) hypertension Essential (primary) h ypertension Diagnosis 03/08/2020 01:20:16 PM [facility] Surgeries/Procedures Procedure Description Date Indications Data Source(s) Measurement of occult blood in stool specimen using immunoas say (procedure) [facility] of occult blood in stool specimen using immunoas say (procedure) 07/25/2019 12:00:00 AM [facility] Results ID Date Data Source [id number] 02/15/2020 02:39:00 PM [facility] Patient Name: Connie Bentley : 1950 Sex: F Pt Unit #: [id number] Location:[facility] Provider: Visit Date/Time: 02/15/20 Primary Insurance: WELLCARE MEDICARE Secondary Insurance: Self Pay Intake Vital Signs 02/15/20 14:43 BP 174/90 Blood Pressure Location Lt brachial Position Sitting Respiration 18 Pulse 81 Pulse Oximetry (%) 98 Oxygen Delivery Method room air Comment home BP monitor : 148/77 Intake Visit Reasons: Hypertension Follow-up Nurse Note: Here for HTN f/u . Does check BP at home . [employer] Consultant Required: No Accompanied by: self Is patient in pain?: No Allergi es erythromycin base [ERYTHROMYCIN BASE] Allergy (Mild, Unverified 07/07/17 09:40) rash nut - unspecified Allergy (Mild, Unverified 02/15/20 14:43) Anaphylaxis Sulfa (Sulfonamide Antibiotics) [SULFA (SULFONAMIDE ANTIBIOTICS)] Allergy (Mild, Unverified 07/07/1808:40) rash Penicillins [PENICILLINS] Allergy (Unknown, Unverified 07/07/17 09:40) rash albuterol [ALBUTEROL] Adverse Reaction (Mild, Unverified 07/07/17 09:40) headache azithromycin [From ZITHROMAX] Adverse Reaction (Mild, Unverified 07/07/17 09:40) diarrhea, blurred vison hydrocodone [From VICODIN] Adverse Reaction (Mild, Unverified 07/07/17 09:40) sedation tetanus toxoid, adsorbed [TETANUS TOXOID,ADSORBED] Adverse Reaction (Mild, Unverified 07/07/17 09:40) rash HIV Testing Offer - ages 13-64 Requirement for HIV testing offer been met?: Not in age range PFSH Medical History (Updated 07/27/19 @ 11:59 by Shalom Mancuso M.D.) Asthma Elevated BP without diagnosis of hypertension Hi story of rheumatic fever menses @ 12,menopause @ 54,9 pregnancies,8 live births,1 ... Vertigo Surgical History section History of - surgery Family History Pt is adopted No problems noted. Social History (Updated 07/20/19 @ 13:21 by Shalom Mancuso M.D.) Does the Patient have a Healthcare Proxy: Yes Does Patient have a DNR?: No Does Patient have a Living Will?: Yes Hx Recent Travel (where): No Smoking Status: Never smoker alcohol intake: never substance use type: does not use HPI Additional HPI HPI Details: as above. she states that other places she goes her bp is normal. she is nervous coming here. Hypertension Followup (Card) * Current neurological symptoms: Denies headache(s) Current cardiovascular symptom: denies chest pain, dyspnea or palpitations Most Recent Cardiac Tests: No Data to Display Review of Systems Const Denies headache(s) ENT Denies headache(s) Card Denies chest pain, Denies pedal edema, Denies lightheadedness, Denies palpitations and Denies dyspnea Resp Denies dyspnea Neuro Denies headache(s) Endo Denies palpitations Exam Const General: cooperative, healthy appearing, no acute distress and well groomed Nutritional Appearance: overweight Orientation: alert, awake and oriented x3 Neck Neck: normal visual inspection, no lymphadenopathy, supple and no JVD present Neck mass: No Thyroid: thyroid normal Chest Chest: normal inspection of the chest Resp Effort Inspection: normal respiratory effort Auscultation: clear to auscultation bilaterally Cardio Jugular venous pressure: no JVD Rate: regular rate Rhythm: regular rhythm Heart Sounds: S1 normal, S2 normal, no click, no gallops and no murmurs Assessment Plan Assessment Plan (1) Elevated BP without diagnosis of hypertension: Status: Acute Comment: marked whitecoat syndrome Code(s): R03.0 - Elevated blood-pressure reading, without diagnosis of hypertension SNOMED Code(s): 042679835 Category: Medical Plan - Shalom Mancuso M.D.: her bp has been labile for years. the cuff she is using is not even close to the actual reading andit is the second one she has tried. she will be seeing dr tatum in 3 weeks and wishes to wait until she talks to him to make a decision about medication. recheck for annual in june. <Electronically signed by Shalom Mancuso MD> 02/15/20 1503 Name Value Range Interpretation Code Description Data Daksha rce(s) Supporting Document(s) ID Date Data Source [id number] 07/27/2019 11:43:00 AM EDT [facility] Patient Name: Connie Bentley OB: 1950 Sex: F Pt Unit #: [id number] Location:[facility] Provider: Visit Date/Time: 07/27/19 Primary Insurance: AETNA Secondary Insurance: Self Pay Intake Vital Signs 07/27/19 11:46 BP 160/84 Blood Pressure Location Lt brachial Position Sitting Respiration 18 Pulse 77 Pulse Strength Normal Pulse Oximetry (%) 97 Oxygen Delivery Method room air Intake Visit Reasons: hypertension Nurse Note: Here today for recheck on BP. Pt had labs completed as well. Allergies erythromycin base [ERYTHROMYCIN BASE] Allergy (Mild, Unverified 07/07/17 09:40) rash Sulfa (Sulfonamide Antibiotics) [SULFA (SULFONAMIDE ANTIBIOTICS)] Allergy (Mild, Unverified 07/07/1808:40) rash Penicillins [PENICILLINS] Allergy (Unknown, Unverified 07/07/17 09:40) rash albuterol [ALBUTEROL] Adverse Reaction (Mild, Unverified 07/07/17 09:40) headache azithromycin [From ZITHROMAX] Adverse Reaction (Mild, Unverified 07/07/17 09:40) diarrhea, blurred vison hydrocodone [From VICODIN] Adverse Reaction (Mild, Unverified 07/07/17 09:40) sedation tetanus toxoid, adsorbed [TETANUS TOXOID,ADSORBED] Adverse Reaction (Mild, Unverified 07/07/17 09:40) rash Medications No Known Home Medications HIV Testing Offer - ages 13-64 Requirement for HIV testing offer been met?: Not in age range PFS H Medical History (Updated 07/27/19 @ 11:59 by Shalom Mancuso M.D.) Asthma Elevated BP without diagnosis of hypertension (Acute) History of rheumatic fever menses @ 12,menopause @ 54,9 pregnancies,8 live births,1 ... Vertigo Surgical History section History of - surgery Social History (Updated 07/20/19 @ 13:21 by Shalom Mancuso M.D.) Does the Patient have a Healthcare Proxy: Yes Does Patient have a DNR?: No Does Patient have a Living Will?: Yes Hx Recent Travel (where): No alcohol intake: never substance use type: does not use HPI Additional HPI HPI Details: as above. she bought a new bp cuff and all readings have been <140/85. Assessment Plan Assessment Plan (1) Elevated BP without diagnosis of hypertension: Status: Acute Comment: marked whitecoat syndrome Code(s): R03.0 - Elevated blood-pressure reading, without di agnosis of hypertension SNOMED Code(s): 021771804 Category: Medical Plan - Shalom Mancuso M.D.: she will start no meds at this time. she will recheck in 6 months and bring her bp cuff with her. Electronically Signed By: <Electronically signed by Shalom Mancuso MD> Date/Time Signed: 07/27/19 1201 Name Value Range Interpretation Code Description Data Daksha rce(s) Supporting Document(s) ID Date Data Source [id number] 07/25/2019 05:19:00 PM T [facility] Name Value Range Interpretation Code Description Data Daksha rce(s) Supporting Document(s) IFOB ICT fecal occult bld Negative [facility] ID Date Data Source [id number] 07/20/2019 05:13:00 PM [facility] Name Value Range Interpretation Code Description Data Daksha rce(s) Supporting Document(s) Urea nitrogen [Mass/volume] in Serum or Plasma 11 mg/dL 9-23 N [facility] Sodium [Moles/volume] in Serum or Plasma 142 mmol/L 132-146 [facility] Potassium [Moles/volume] in Serum or Plasma 4.1 mmol/L 3.5-5.5 N [facility] Chloride [Moles/volume] in Serum or Plasma 109 mmol/L 99-109 N [facility] Carbon dioxide, total [Moles/volume] in Serum or Plasma 30 mmol/L 20 -31 N [facility] Anion gap in Serum or Plasma 7 mmol/L 8-16 Below low normal [facility] Glucose [Mass/volume] in Serum or Plasma 89 mg/dL 74-106 N [facility] Creatinine 0.9 mg/dL 0.5-1.1 [facility] Glomerular filtration rate/1.73 sq M.pre dicted [Volume Rate/Area] in Serum or Plasma Greater Than 60 ABOVE 60 [facility] Calcium [Mass/volume] in Serum or Plasma 10.3 mg/dL 8.5-10.1 Above high normal [facility] ID Date Data Source [id number] 07/20/2019 05:13:00 PM [facility] Name Value Range Interpretation Code Description Data Daksha rce(s) Supporting Document(s) Triglycerides 195 mg/dL 0-150 Above high normal [facility] Cholesterol 188 mg/dL 120-200 [facility] HDL Cholesterol 40 mg/dL [facility] HDL Less than 40 mg/dL: Major risk for CHDHDL Greater than 59 mg/dL: Low risk for CHD LDL Cholesterol, Calc 109 mg/dL 0-100 Above high normal [facility] ID Date Data Source [id number] 07/20/2019 05:13:00 PM [facility] Name Value Range Interpretation Code Description Data Daksha rce(s) Supporting Document(s) Thyrotropin [Units/volume] in Serum or Plasma by Detec tion limit <= 0.005 mIU/L 1.73 u[iU]/mL 0.35-5.50 [facility] ID Date Data Source [id number] 07/20/2019 01:00:00 PM EDT [facility] Patient Name: CONNIE BENTLEY OB: 1950 Sex: F Pt Unit #: [id number] Location:[facility] Provider: Visit Date/Time: 07/20/19 Primary Insurance: AETNA Secondary Insurance: Self Pay Intake Vital Signs 07/20/19 13:06 BP 164/86 Blood Pressure Location Lt brachial Position Sitting Respiration 18 Pulse 84 Pulse Strength Normal Pulse Oximetry (%) 95 Oxygen Delivery Method room air Intake Visit Reasons: hypertension Nurse Note: Here today with concerns for her BP. Pt has been checking BP at home did go up to 200/140 ( one time ) Per pt was 125/75 this morning . Allergies erythromycin base [ERYTHROMYCIN BASE] Allergy (Mild, Unverified 07/07/17 09:40) rash Sulfa (Sulfonamide Antibiotics) [SULFA (SULFONAMIDE ANTIBIOTICS)] Allergy (Mild, Unverified 07/07/1808:40) rash Penicillins [PENICILLINS] Allergy (Unknown, Unverified 07/07/17 09:40) rash albuterol [ALBUTEROL] Adverse Reaction (Mild, Unverified 07/07/17 09:40) headache azithromycin [From ZITHROMAX] A dverse Reaction (Mild, Unverified 07/07/17 09:40) diarrhea, blurred vison hydrocodone [From VICODIN] Adverse Reaction (Mild, Unverified 07/07/17 09:40) sedation tetanus toxoid, adsorbed [TETANUS TOXOID,ADSORBED] Adverse Reaction (Mild, Unverified 07/07/17 09:40) rash HIV Testing Offer - ages 13-64 Requirement for HIV testing offer been met?: Not in age range [facility] Social History (Updated 07/20/19 @ 13:21 by Shalom Mancuso M.D.) Does the Patient have a Healthcare Proxy: Yes Does Patient have a DNR?: No Does Patient have a Living Will?: Yes Hx Recent Travel (where): No Smoking Status: Never smoker alcohol intake: never substance use type: does not use HPI Additional HPI HPI Details: as above. states that her bp has gone up and down for years. unknown when she had her last labs. has never taken bp med. Review of Systems Const Denies headache(s) ENT Denies headache(s) Card Denies chest pain, Denies pedal edema, Denies lightheadedness, Denies palpitations and Denies dyspnea Resp Denies dyspnea Neuro Denies headache(s) Endo Denies palpitations Exam Const General: cooperative, healthy appearing, no acute distress and well groomed Nutritional Appearance: overweight Orientation: alert, awake and oriented x3 Neck Neck: normal visual inspection, no lymphadenopathy, supple and no JVD present Neck mass: No Thyroid: thyroid normal Chest Chest: normal inspection of the chest Resp Effort Inspection: normal respiratory effort Auscultation: clear to auscultation bilaterally Cardio Jugular venous pressure: no JVD Rate: regular rate Rhythm: regular rhythm Heart Sounds: S1 normal, S2 normal, no click, no gallops and no murmurs Pulses: normal peripheral pulses Other: bp left arm sitting, regular cuff 162/90 Assessment Plan Assessment Plan (1) Essential (primary) hypertension: Status: Acute Code(s): I10 - Essential (primary) hypertension SNOMED Code(s): 60449813 Category: Medical Plan - Shalom Mancuso M.D.: she very much does not want to take rx. she agreed to have labs done and recheck here next week. recommended she discard her cuff. Orders: Orders: BMP Today LIPID PANEL Today TSH Today Orders Instructions: DASH Eating Plan (GEN) Hypertension (GEN) Electronically Signed By: <El ectronically signed by Shalom Mancuso MD> Date/Time Signed: 07/20/19 1325 Name Value Range Interpretation Code Description Data Daksha rce(s) Supporting Document(s) ID Date Data Source [id number] 06/23/2019 11:36:00 AM [facility] Patient Name: CONNIE BENTLEY OB: 1950 Sex: F Pt Unit #: [id number] Location:[facility] Provider: Visit Date/Time: 06/23/19 Primary Insurance: [employer]ET[employer] Secondary Insurance: Self Pay Intake Vital Signs 06/23/19 11:42 Current Weight 163 lb Weight Measurement Method Standing Scale BP 136/78 Blood Pressure Location Lt brachial Position Sitting Respiration 18 Pulse 69 Pulse Strength Normal Temp 98.5 F Temp Source Tympanic Pulse Oximetry (%) 96 Oxygen Delivery Method room air Intake Visit Reasons: Annual Physical Nurse Note: Here for Annual PE. Pneumovax, TDAP and FLU UTD. Pt had ifob completed in 2018 at the [facility] in [place] and was negative , did have a colonoscopy " many many years ago " but declines any further testing . Scheduled to have a Mammo on 06-29-19 ordered by [facility] . Does c/o right side pain facial pain , tinnitus in her right ear. [employer] Consultant Required: No Accompanied by: self Is patient in pain?: No Allergies erythromycin base [ERYTHROMYCIN BASE] Allergy (Mild, Unverified 07/07/17 09:40) rash Sulfa (Sulfonamide Antibiotics) [SULFA (SULFONAMIDE ANTIBIOTICS)] Allergy (Mild, Unverified 07/07/1808:40) rash Penicillins [PENICILLINS] Allergy (Unknown, Unverified 07/07/17 09:40) rash albuterol [ALBUTEROL] Adverse Reaction (Mild, Unverified 07/07/17 09:40) headache azithromycin [From ZITHROMAX] Adverse Reaction (Mild, Unverified 07/07/17 09:40) diarrhea, blurred vison hydrocodone [From VICODIN] Adverse Reaction (Mild, Unverified 07/07/17 09:40) sedation tetanus toxoid, adsorbed [TETANUS TOXOID,ADSORBED] Adverse Reaction (Mild, Unverified 07/07/17 09:40) rash HIV Testing Offer - ages 13-64 Requirement for HIV testing offer been met?: Not in age range [facility] Medical History Asthma History of measles History of rheumatic fever History of varicella menses @ 12,menopause @ 54,9 pregnancies,8 live births,1 ... Mumps Vertigo Surgical History section History of - surgery Family History Pt is adopted No problems noted. Social History (Updated 06/23/19 @ 12:06 by Shalom Mancuso M.D.) Does the Patient have a Healthcare Proxy: Yes Does Patient have a DNR?: No Does Patient have a Living Will?: Yes Hx Recent Travel (where): No Smoking Status: Never smoker HPI Additional HPI HPI Details: as above. the pain in her right side is from a fall that happened at school a week ago andis resolving. the tinnitus in the right ear dates to the same injury. she has been having occasional heartburn and would like some ranitidine. she is willing to have a colonoscopy if an ifob is positive. Review of Systems ENT Reports abnormal hearing and Reports tinnitus Card Denies chest pain, Denies pedal edema, Denies lightheadedness, Denies palpitations and Denies dyspnea Resp Denies dyspnea Neuro Reports abnormal hearing Psych Denies abnormal sleep pattern, Denies anxiety, Denies change in appetite, Denies depression and Denies irritability Endo Denies palpitations Exam Const General: cooperative, healthy appearing, no acute distress and well groomed Nutritional Appearance: overweight Orientation: alert, awake and oriented x3 HENMT Head: normal to inspection, normocephalic and atraumatic Ears: hearing grossly normal bilaterally, external ears normal, TM's normal bilaterally and EAC's normal General nose exam: external nose normal and no nasal discharge Face and sinus: normal facial exam Mouth: oral mucosae normal, lip normal, tongue normal, oropharynx normal and moist mucous membranes Throat: posterior oropharynx normal Eyes General: appearance normal, both eyes and all related structures Alignment and Position: alignment normal Periorbital: periorbital findings normal Eyelids: eyelids normal Conjunctivae: conjunctivae normal Sclera: sclerae normal Cornea: corneas normal Pupils: PERRL EOM: EOM intact bilaterally Neck Neck: normal visual inspection, no lymphadenopathy, supple and no JVD present Neck mass: No Thyroid: thyroid normal Chest Chest: normal inspection of the chest Resp Effort Inspection: normal respiratory effort Auscultation: clear to auscultation bilaterally Cardio Jugular venous pressure: no JVD Rate: regular rate Rhythm: regular rhythm Heart Sounds: S1 normal, S2 normal, no click, no gallops and no murmurs GI Palpation: soft, no hepatosplenomegaly and nontender Skin Lesions: no lesions Rashes: no rashes Neuro General: alert, awake, oriented x3, gait normal and moves all extremities Cranial Nerves: CN's II-XII intact bilaterally Cognition: normal cognition Speech: speech normal Gait: normal gait Motor: muscle tone normal throughout Extrem General: no pedal edema Psych Appearance: grossly normal and well kempt Mental Status: mental status grossly normal Speech and Movement: speech and movement normal Mood: anxious mood Affect: anxious affect Attitude: cooperative Thought Process: normal Thought Content: normal Insight: fair Judgment: fair Assessment Plan Assessment Plan (1) Encounter for annual health examination: Code(s): Z00.00 - Encounter for general adult medical examination without abnormal findings Plan - Shalom Mancuso M.D.: she will do an ifob. we discussed weight bearing exercise for her osteopenia. [facility]. famotidine was prescribed for prn use. she was reassured about her various pains that i find nothing serious wrong. recheck annually. Orders Other Medications: New: famotidine (Acid [employer] Core Sand (famotidine)) 20 mg PO QDAY PRN 30 tabs 1RF heartburn Other Orders: Orders: IFOB ICT fecal occult bld Today Z12.11, Z12.12 Electronically Signed By: <Electronically signed by Shalom Mancuso MD> Date/Time Signed: 06/23/19 1213 Name Value Range Interpretation Code Description Data Daksha rce(s) Supporting Document(s) Procedure Social History Code Duration Value Status Description Data Source(s ) Alcohol intake 03/08/2020 12:00:00 AM EST Not Currently completed [facility] Smoking 03/08/2020 12:00:00 AM EST Never smoker completed Never [facility] 01/25/2020 11:38:00 AM EDT No completed [facility] 01/25/2020 11:38:00 AM EDT No completed No [facility] 01/25/2020 11:38:00 AM EDT Never smoker completed Never s [facility] Smoking 01/25/2020 11:38:00 AM EDT Never smoker completed Never s [facility] 07/20/2019 01:21:34 PM EDT Never smoker completed Never s [facility] Smoking 07/20/2019 01:21:00 PM EDT Never smoker completed Never s [facility] 06/23/2019 12:06:55 PM EST Never smoker completed Never s [facility] 06/23/2019 12:06:55 PM EST Never smoker completed Never s [facility] 06/23/2019 12:06:55 PM EST Never smoker completed Never [facility] Smoking 06/23/2019 12:06:00 PM EST Never smoker completed Never [facility] Smoking 06/23/2019 12:06:00 PM EST Never smoker completed Never [facility] Vital Signs ID Date Data Source UNK Name Value Range Interpretation Code Description Data Source(s) Diastolic blood pressure 80 mm[Hg] 80 mm[Hg] [facility] Systolic blood pressure 130 mm[Hg] 130 mm[Hg] [facility] Oxygen saturation in Arterial blood by Pulse oximetry 98 % 98 % [facility] Body mass index (BMI) [Ratio] 27.64 kg/m2 27.64 kg/m2 [facility] Body weight 73.[address] [facility] Body height 162.[address] [facility] Heart rate 67 /min 67 /min [facility] Diastolic blood pressure 88 mm[Hg] 88 mm[Hg] W1 ([facility]) Systolic blood pressure 132 mm[Hg] 132 mm[Hg] e CW1 ([facility]) Body mass index (BMI) [Ratio] 29.23 kg/m2 29.23 kg/m2 W1 ([facility]) Body height 63 [in_us] 63 [in_us] eCW1 ([facility]) Body weight Measured 165 [lb_av] 165 [lb_av] eC W1 ([facility])
--- NOTE | 2020-06-01 12:06 | REP ---
INDICATION: CHEST PAIN. COMPARISON: Comparison chest x-ray February 25, 2019. TECHNIQUE: Portable upright AP chest radiograph. FINDINGS: The lungs are well inflated and free of infiltrate. Pleural angles are sharp. Heart size is normal. Pulmonary vasculature is not increased. IMPRESSION: No active disease. <Electronically signed by Paul Mckenna > 06/01/20 1203
[2020-06-01 12:32] LABS: BASO # 0.1 10^3/uL (0.0-0.2); BASO % 0.9 % (0.0-1.0); EOS # 0.1 10^3/uL (0.0-0.5); EOS % 2.2 % (0.0-3.0); HEMATOCRIT 41.8 % (36.0-47.0); HEMOGLOBIN 13.6 g/dl (12.0-15.5); LYMPH # 1.7 10^3/uL (1.5-5.0); LYMPH % 31.8 % (24.0-44.0); MEAN CORPUSCULAR HEMOGLOBIN 28.8 pg (27.0-33.0); MEAN CORPUSCULAR HGB CONC 32.5 g/dl (32.0-36.5); MEAN CORPUSCULAR VOLUME 88.6 fl (80.0-96.0); MONO # 0.3 10^3/uL (0.0-0.8); MONO % 6.3 % (0.0-5.0); NEUTROPHILS # 3.2 10^3/uL (1.5-8.5); NEUTROPHILS % 58.4 % (36.0-66.0); PLATELET COUNT, AUTOMATED 235 10^3/uL (150-450); RED BLOOD COUNT 4.72 10^6/uL (4.00-5.40); WHITE BLOOD COUNT 5.4 10^3/uL (4.0-10.0)
[2020-06-01 12:42] LABS: INR 1.06
[2020-06-01 12:43] LABS: PARTIAL THROMBOPLASTIN TIME 27.3 SECONDS (24.2-38.5)
[2020-06-01 12:57] LABS: ALBUMIN 3.9 GM/DL (3.2-5.2); ALT/SGPT 30 U/L (12-78); BILIRUBIN,DIRECT 0.1 MG/DL (0.0-0.2); BILIRUBIN,TOTAL 0.4 MG/DL (0.2-1.0); BLOOD UREA NITROGEN 11 MG/DL (7-18); CALCIUM LEVEL 9.8 MG/DL (8.8-10.2); CARBON DIOXIDE LEVEL 22 MEQ/L (21-32); CHLORIDE LEVEL 110 MEQ/L (98-107); CK-MB VALUE MASS < 1.0 NG/ML (<3.6); CPK CREATINE PHOSPHOKINASE 41 U/L (26-192); CREATININE FOR GFR 0.64 MG/DL (0.55-1.30); FREE T4 0.87 NG/DL (0.76-1.46); GLOMERULAR FILTRATION RATE > 60.0 (>45); GLUCOSE, FASTING 81 MG/DL (70-100); LIPASE 96 U/L (73-393); MB/CK RELATIVE INDEX 2.44 (< OR =4); SODIUM LEVEL 143 MEQ/L (136-145); TOTAL PROTEIN 7.3 GM/DL (6.4-8.2); TROPONIN I < 0.02 NG/ML (< 0.10)
[2020-06-01 13:37] LABS: D-DIMER QUANT 440.3 ng/ml (<500)
--- OUTSIDE RECORDS SUMMARY | 2020-06-01 13:38 | CCD ---
Author Author [facility] Organization [facility] Address Unknown Phone Unavailable Care Team Providers Care Supervisor Mails Name Role Phone Barry Mancuso MD Unavailable [...] Shambo, Barry Rausch MD Unavailable Unavailable Shambo, Brary Rausch MD Unavailable Unavailable Shambo, Barry Rausch [...] Unavailable Shambo, Barry Rausch MD Unavailable Unavailable BRENT TATUM MD Unavailable [...] is protected by Article 27-F of the [facility] Public Health law. If you continue you may have access to information: Regarding HIV / AIDS; Provided by facilities licensed or operated by the [facility] Office of Mental Health; or Provided by the [facility] Office for People With Developmental Disabilities. If such information is present, then the following [facility] mandated warning applies: This information has [...] law may result in a fine or custodial sentence or both. A general authorization for the release of medical or other information is NOT sufficient authorization for further disc losure. Allergies and Adverse Reactions Type Description Substance Reaction Status Data Source(s ) Propensity to adverse reactions VIT D-VIT E-SAFFLOWER OIL Vi t D-Vit E-Safflower Oil Rash High Active [facility] High Propensity to adverse reactions SULFA ANTIBIOTICS Sulfa Antibiotics Active [facility] Propensity to adverse reactions PENICILLIN G Penicillin G Active [facility] Propensity to adverse reactions LATEX Latex Acti ve [facility] Propensity to adverse reactions ERYTHROMYCIN Erythromycin Active [facility] Propensity to adverse reactions CIPROFLOXACIN Ciprofloxacin Active [facility] Erythromycin Erythromycin Erythromycin 500 MG Delayed Release Oral Tablet Rash Active eCW1 ([facility]) Tetanus Toxoid Adsorbed Tetanus Toxoid Adsorbed Tetanus Toxoid A dsorbed Rash/swelling Active eCW1 ([facility]) Latex Gloves Latex Gloves Latex Gloves Anaphylaxis Active eCW1 ( [facility]) Albuterol Sulfate HFA Albuterol Sulfate HFA Albuterol Sulfate HFA Tashi h Active eCW1 ([facility]) mushrooms mushrooms mushrooms Anaphylaxis Active eCW1 ([facility]) Bactrim Bactrim Bactrim Rash Active eCW1 ([facility]) Cipro Cipro Cipro h/a Active eCW1 ([facility]) Family History Family Member Name Family Member Gender Family Member Status Date o f Status Description Data Source(s) Unknown Male Problem MEDENT ([facility]) Unknown Unknown Problem MEDENT ([facility]) Unknown Unknown Problem MEDENT ([facility]) Unknown Unknown Encounters Encounter Providers Location Date Indications Data Source(s ) Outpatient Attender: BRENT TATUM MD [email or web address] 0 12:00:00 AM EST - 03/08/2020 02:22:38 PM EST [facility] Outpatient Attender: Shalom Mancuso MDReferrer: Shalom Mancuso MD 02/15/2020 02:38:00 PM EDT - 02/15/2020 03:02:00 PM EDT [facility] Outpatient Attender: BRENT TATUM MD [email or web address] 08/30/2019 10:56:05 AM EDT [facility] Outpatient Attender: Shalom Mancuso MDReferrer: Shalom Mancuso MD 07/27/2019 11:42:00 AM EDT [facility] Outpatient Attender: Shalom Mancuso MD 07/25/2019 03:00:00 P M EDT Z12.11,Z12.12 [facility] Z12.11,Z12.12 Outpatient Attender: Shalom Mancuso MD 07/20/2019 04:0 0:00 PM EDT Z12.11,Z12.12,I10 [facility] Z12.11,Z12.12,I10 Outpatient Attender: Shalom Mancuso MDReferrer: Shalom Mancuso MD 07/20/2019 12:56:00 PM EDT - 07/20/2019 01:20:00 PM EDT [facility] Outpatient Attender: Shalom Mancuso MDReferrer: Shalom Mancuso MD 06/23/2019 10:55:00 AM EST - 06/23/2019 12:07:00 PM EST [address] [id number] 06/19/2019 12:00:00 AM EST eCW1 ([facility]) Medications Medication Brand Name Start Date Product Form Dose Route Admi nistrative Instructions Pharmacy Instructions Status Indications Reaction Description Data Source(s) Famotidine 20 MG Oral Tablet Famotidine 06/23/2019 12:03:52 PM EST 20 MG active [facility] Famotidine 20 MG Oral Tablet Famotidine 06/23/2019 12:03:52 PM EST 20 MG completed [facility] Insurance Providers Payer name Policy type / Coverage type Policy ID Covered green party ID Covered green party's relationship to hernandez Policy Hernandez Plan Information WELLCARE [id number] SP [id number] HUMANA GOLD [id number] SP [id number] WELLCARE O [id number] S [id number] AETNA MEDICARE O [id number] WELLCARE MEDICARE [id number] WELLCARE MEDICARE [id number] Tory [id number] HUMANA GOLD O [id number] S [id number] HUMANA HMO [id number] SP [id number] MEDICARE [id number] SP [id number] AETNA MEDICARE [id number] SP [id number] 1BY BOOKER CLAIM ADMIN WORK COMP SP BOOKER CLAIM ADMIN WORK O [id number] S [id number] HUMANA HMO O [id number] S [id number] OTHER WORKERS COMPENSATI O [id number] O [id number] [employer] [id number] SP [id number] HUMANA HMO [id number] SP [id number] OTHER WORKERS COMPENSATION [id number] SP [id number] HUMANA GOLD [id number] SP [id number] Humana Gold Choice Commercial [id number] Self [id number] Medicare Blue Commercial [id number] Self [id number] HUMANA PPO [id number] SP [id number] HUMANA PPO [id number] SP [id number] MEDICARE BLUE PPO 306 [id number] SP [id number] Blue Shield MCR Advantage Commercial [id number] Self [id number] Blue Shield MCR Advantage Commercial [id number] Self [id number] Blue Shield MCR Advantage Commercial [id number] Self [id number] [facility] BCBS B [id number] S [id number] MEDICARE BLUE PPO [id number] SP [id number] BS Medicare Blue Ppo/Hmo Commercial [id number] Self [id number] MEDICARE BLUE PPO 306 [id number] SP [id number] MEDICARE BLUE PPO 306 [id number] SP [id number] MEDICARE BLUE PPO 306 [id number] SP [id number] Medicare Blue Ppo/Hmo Commercial [id number] Self [id number] MEDICARE [id number] SP [id number] A [facility] API HEALTHCAREO [id number] SP [id number] [place] [id number] SP [id number] JAYSON [id number] SP [id number] [facility] Medicare Commercial Self UNITED HEALTHCARE(MCAID) O [id number] S [id number] [facility] Health Maintenance Organization (HMO) Self JAYSON CARE [place] O [id number] S [id number] [place] [id number] SP [id number] [place] Health Maintenance Organization (HMO) Se lf SELF PAY UNAVAILABLE SP UNAVAILA BLE PMA MANAGEMENT [facility] P [id number] S [id number] PMA MANAGEMENT [facility] SKH [id number] SP [id number] BCBS OF [place]ATN [id number] SP [id number] Problems, Conditions, and Diagnoses Code Display Name Description Problem Type Effective Dates Data Source(s) Z86.79 Personal history of other diseases of th e circulatory system Personal history of other diseases of th Diagnosis 03/08/2020 01:20:16 PM EST [facility] R55 Syncope and collapse Syncope and collapse Diagnosis 03/08/2020 01:20:16 PM EST [facility] R94.31 Abnormal electrocardiogram [ECG] [EKG] A bnormal electrocardiogram (ECG) (EKG) Diagnosis 03/08/2020 01:20:16 PM EST [facility] R01.1 Cardiac murmur, unspecified Cardiac murmur, unspecifie d Diagnosis 03/08/2020 01:20:16 PM [facility] R00.2 Palpitations Palpitations Diagnosis 03/08/2020 01:20:16 P M EST [facility] R07.9 Chest pain, unspecified Chest pain, unspecified Diagno sis 03/08/2020 01:20:16 PM [facility] I10 Essential (primary) hypertension Essential (primary) h ypertension Diagnosis 03/08/2020 01:20:16 PM [facility] Surgeries/Procedures Procedure Description Date Indications Data Source(s) Measurement of occult blood in stool specimen using immunoas say (procedure) 07/[facility]2019 12:00:[facility] of occult blood in stool specimen using immunoas say (procedure) 07/25/2019 12:00:00 AM [facility] Results ID Date Data Source [id number] 02/15/2020 02:39:00 PM [facility] Patient Name: Connie Bentley : 1950 Sex: F Pt Unit #: [id number] Location:[facility] Provider: Visit Date/Time: 02/15/20 Primary Insurance: [...] . Does check BP at home . Ceo & Board Director Required: No Accompanied by: self Is patient [...] reading, without diagnosis of hypertension SNOMED Code(s): 211927101 Category: Medical Plan - Shalom Mancuso M.D.: [...] rce(s) Supporting Document(s) ID Date Data Source [id number] 07/27/2019 11:43:00 AM EDT [facility] Patient Name: Connie Bentley OB: 1950 Sex: F Pt Unit #: [id number] Location:[facility] Provider: Visit Date/Time: 07/27/19 Primary Insurance: [...] without di agnosis of hypertension SNOMED Code(s): 164822641 Category: Medical Plan - Shalom Mancuso M.D.: she will start no meds at this time. she will recheck in 6 months and bring her bp cuff with her. Electronically Signed By: <Electronically signed by hSalom Mancuso MD> Date/Time Signed: 07/27/19 1201 Name Value Range Interpretation Code Description Data Daksha rce(s) Supporting Document(s) ID Date Data Source [id number] 07/25/2019 05:19:00 PM EDT [facility] Name Value Range Interpretation Code Description Data Daksha rce(s) Supporting Document(s) IFOB ICT fecal occult bld Negative [facility] ID Date Data Source [id number] 07/20/2019 05:13:00 PM EDT [facility] Name Value Range Interpretation Code Description Data Daksha rce(s) Supporting Document(s) Urea nitrogen [Mass/volume] in Serum or Plasma 11 mg/dL 9-23 N [facility] Sodium [Moles/volume] in Serum or Plasma 142 mmol/L 132-146 N [facility] Potassium [Moles/volume] in Serum or Plasma 4.1 mmol/L 3.5-5.5 N [facility] Chloride [Moles/volume] in Serum or Plasma 109 mmol/L 99-109 N [facility] Carbon dioxide, total [Moles/volume] in Serum or Plasma 30 mmol/L 20 -31 N [facility] Anion gap in Serum or Plasma 7 mmol/L 8-16 Below low normal [facility] Glucose [Mass/volume] in Serum or Plasma 89 mg/dL 74-106 N [facility] Creatinine 0.9 mg/dL 0.5-1.1 [facility] Glomerular filtration rate/1.73 sq M.pre dicted [Volume Rate/Area] in Serum or Plasma Greater Than 60 ABOVE 60 [facility] Calcium [Mass/volume] in Serum or Plasma 10.3 mg/dL 8.5-10.1 Above high normal [facility] ID Date Data Source [id number] 07/20/2019 05:13:00 PM [facility] Name Value Range Interpretation Code Description Data Daksha rce(s) Supporting Document(s) Triglycerides 195 mg/dL 0-150 Above high normal [facility] Cholesterol 188 mg/dL 120-200 N [facility] HDL Cholesterol 40 mg/dL [facility] HDL Less than 40 mg/dL: Major risk for CHDHDL Greater than 59 mg/dL: Low risk for CHD LDL Cholesterol, Calc 109 mg/dL 0-100 Above high normal [facility] ID Date Data Source [id number] 07/20/2019 05:13:00 PM [facility] Name Value Range Interpretation Code Description Data Daksha rce(s) Supporting Document(s) Thyrotropin [Units/volume] in Serum or Plasma by Detec tion limit <= 0.005 mIU/L 1.73 u[iU]/mL 0.35-5.50 N [facility] al ID Date Data Source [id number] 07/20/2019 01:00:00 PM EDT [facility] Patient Name: CONNIE BENTLEY OB: 1950 Sex: F Pt Unit #: [id number] Location:[facility] Provider: Visit Date/Time: 07/20/19 Primary Insurance: [...] been met?: Not in age range PFSH Social History (Updated 07/20/19 @ 13:21 by [...] I10 - Essential (primary) hypertension SNOMED Code(s): 32048897 Category: Medical Plan - Shalom Mancuso M.D.: [...] rce(s) Supporting Document(s) ID Date Data Source [id number] 06/23/2019 11:36:00 AM [facility] Patient Name: CONNIE BENTLEY OB: 1950 Sex: F Pt Unit #: [id number] Location:[facility] Provider: Visit Date/Time: 06/23/19 Primary Insurance: [...] had ifob completed in [address] [facility] in [place] and was negative , did have a colonoscopy " many many years ago " but declines any further testing . Scheduled to have a Mammo on 06-29-[address] [facility] . Does c/o right side pain facial pain , tinnitus in her right ear. Ceo & Board Director Required: No Accompanied by: self Is patient [...] offer been met?: Not in age range [facility] Medical History Asthma History of measles History [...] annually. Orders Other Medications: New: famotidine (Acid Sheet Cutting Operator (famotidine)) 20 mg PO QDAY PRN 30 [...] 03/08/2020 12:00:00 AM EST Not Currently completed [facility] Smoking 03/08/2020 12:00:00 AM EST Never smoker completed Never [facility] 01/25/2020 11:38:00 AM EDT No completed [facility] 01/25/2020 11:38:00 AM EDT No completed [facility] 01/25/2020 11:38:00 AM EDT Never smoker completed Never [facility] Smoking 01/25/2020 11:38:00 AM EDT Never smoker completed Never [facility] 07/20/2019 01:21:34 PM EDT Never smoker completed Never [facility] Smoking 07/20/2019 01:21:00 PM EDT Never smoker completed Never [facility] 06/23/2019 12:06:55 PM EST Never smoker completed Never [facility] 06/23/2019 12:06:55 PM EST Never smoker completed Never s [facility] 06/23/2019 12:06:55 PM EST Never smoker completed Never s [facility] Smoking 06/23/2019 12:06:00 PM EST Never smoker completed Never s [facility] Smoking 06/23/2019 12:06:00 PM EST Never smoker completed Never s [facility] Vital Signs ID Date Data Source UNK Name Value Range Interpretation Code Description Data Source(s) Diastolic blood pressure 80 mm[Hg] 80 mm[Hg] [facility] Systolic blood pressure 130 mm[Hg] 130 mm[Hg] [facility] Oxygen saturation in Arterial blood by Pulse oximetry 98 % 98 % [facility] Body mass index (BMI) [Ratio] 27.64 kg/m2 27.64 kg/m2 [facility] Body weight 73.029 kg 73.029 kg [facility] Body height 162.6 cm 162.6 cm [facility] Heart rate 67 /min 67 /min [facility] Diastolic blood pressure 88 mm[Hg] 88 mm[Hg] W1 ([facility]) Systolic blood pressure 132 mm[Hg] 132 mm[Hg] e CW1 ([facility]) Body mass index (BMI) [Ratio] 29.23 kg/m2 29.23 kg/m2 eCW1 ([facility]) Body height 63 [in_us] 63 [in_us] eCW1 ([facility]) Body weight Measured 165 [lb_av] 165 [lb_av] eC W1 ([facility])
[2020-06-01 16:25] VITALS: BP 170/77
--- NOTE | 2020-06-01 16:42 | ECGEPIP ---
[facility] - ED Test Date: 2020-06-01 Pat Name: BARBARA FOSTER Department: Room: - Gender: Female Early Intervention Specialist: amelia : 1950 Requested By: Itzel Villavicencio Order Number: [id number] Reading MD: Itzel Villavicencio Measurements Intervals [place] Rate: 64 P: 1 [place]: 187 QRS: 49 QRSD: 90 T: -9 QT: 387 QTc: 401 Interpretive Statements SINUS RHYTHM WITH OCCASIONAL VENTRICULAR PREMATURE COMPLEXES NONSPECIFIC ST & T-WAVE ABNORMALITY increased ectopy 02/25/19 Electronically Signed on 06-01-2020 16:42:11 EST by Itzel Villavicencio
--- NOTE | 2020-06-01 16:45 | ECGEPIP ---
[facility] - ED Test Date: 2020-06-01 Pat Name: BARBARA FOSTER Department: Room: - Gender: Female Supervisor Opening And Picking: : 1950 Requested By: JULIEN WONG Order Number: [id number] Reading MD: Itzel Villavicencio Measurements Intervals [place] Rate: 53 P: 67 MD: 149 QRS: 27 QRSD: 95 T: 61 QT: 426 QTc: 401 Interpretive Statements SINUS BRADYCARDIA NONSPECIFIC T-WAVE ABNORMALITY DECREASED RATE 06/01/20 Electronically Signed on 06-01-2020 16:45:34 EST by Itzel Villavicencio
== END 2020-06-01 16:32 | disposition home or self-care (01) ==
LOC: M ED 11:46
DX: R07.89 Other chest pain (principal); R00.1 Bradycardia, unspecified; Z88.0 Allergy status to penicillin; Z88.2 Allergy status to sulfonamides; Z88.1 Allergy status to other antibiotic agents

== ENCOUNTER → 2021-08-29 | Outpatient (REF) | payer MEDICARE | LOC: M PLALAB 16:32 | PROVIDERS: ATTEND Advanced Practice Midwife | DX: N90.4 Leukoplakia of vulva (principal); Z12.4 Encounter for screening for malignant neoplasm of cervix | CPT/HCPCS: 56605; 88305; G0101 ==

== ENCOUNTER → 2021-09-09 | Outpatient (CLI) | payer MEDICARE | LOC: M WHC 15:00 | PROVIDERS: ATTEND Advanced Practice Midwife | DX: R10.2 Pelvic and perineal pain (principal); N85.4 Malposition of uterus ==

== ENCOUNTER 2022-05-19 11:43 | Emergency (ER) | payer MEDICARE ==
[~2022-05-19] VITALS: Ht 157.5 cm; Wt 73.4 kg
[2022-05-19 11:43] VITALS: BP 180/98
== END 2022-05-19 19:55 | disposition left against medical advice (07) ==
LOC: M ED 15:54
DX: Z53.21 Procedure and treatment not carried out due to patient leaving prior to being seen by health care provider (principal)

== ENCOUNTER 2023-01-16 04:49 | Emergency (ER) | payer MEDICARE ==
[~2023-01-16] VITALS: Ht 152.4 cm; Wt 72.6 kg
[2023-01-16 04:50] VITALS: TEMP 96.9; O2SAT 98
[2023-01-16] MEDS ORDERED: KETOROLAC 30 MG/ML 1ML VIAL As Ordered ONE (05:12)
[2023-01-16] MEDS ORDERED: ONDANSETRON 4MG 2ML VIAL As Ordered ONE (05:12)
[2023-01-16] MEDS ORDERED: KETOROLAC 30 MG/ML 1ML VIAL IV ONE (05:15)
[2023-01-16] MEDS ORDERED: NS 1,000 ML IV ONE (05:15)
[2023-01-16] MEDS ORDERED: ONDANSETRON 4MG 2ML VIAL IV ONE (05:15)
[2023-01-16 05:33] LABS: BASO % 0.3 % (0.0-1.0); EOS # 0.1 10^3/uL (0.0-0.5); EOS % 1.8 % (0.0-3.0); HEMOGLOBIN 13.8 g/dl (12.0-15.5); LYMPH # 1.1 10^3/uL (1.5-5.0); LYMPH % 16.6 % (24.0-44.0); MEAN CORPUSCULAR HEMOGLOBIN 29.1 pg (27.0-33.0); MEAN CORPUSCULAR HGB CONC 33.7 g/dl (32.0-36.5); MEAN CORPUSCULAR VOLUME 86.3 fl (80.0-96.0); MONO # 0.4 10^3/uL (0.0-0.8); MONO % 5.9 % (2.0-8.0); NEUTROPHILS # 5.1 10^3/uL (1.5-8.5); NEUTROPHILS % 75.1 % (36.0-66.0); PLATELET COUNT, AUTOMATED 230 10^3/uL (150-450); RED BLOOD COUNT 4.75 10^6/uL (4.00-5.40); WHITE BLOOD COUNT 6.8 10^3/uL (4.0-10.0)
[2023-01-16 06:00] LABS: LIPASE 25 U/L (12-53)
[2023-01-16 06:01] LABS: AMYLASE 64 U/L (30-118)
[2023-01-16 06:02] LABS: ALKALINE PHOSPHATASE 101 U/L (46-116); ALT/SGPT 25 U/L (7.0-40); AST/SGOT 17 U/L (<34); BILIRUBIN,DIRECT 0.2 MG/DL (<0.4); BILIRUBIN,TOTAL 0.6 MG/DL (0.3-1.2); BLOOD UREA NITROGEN 12 MG/DL (9-23); CALCIUM LEVEL 10.2 MG/DL (8.3-10.6); CARBON DIOXIDE LEVEL 24 MMOL/L (20-31); CHLORIDE LEVEL 109 MMOL/L (98-107); CREATININE FOR GFR 0.62 MG/DL (0.55-1.30); GLOMERULAR FILTRATION RATE > 60.0 (>39); GLUCOSE, FASTING 129 MG/DL (74-106); POTASSIUM SERUM 3.9 MMOL/L (3.5-5.1); SODIUM LEVEL 142 MMOL/L (136-145); TOTAL PROTEIN 7.1 G/DL (5.7-8.2)
[2023-01-16 06:10] LABS: RSV AMPLIFICATION NEGATIVE (NEGATIVE)
[2023-01-16 06:18] VITALS: BP 160/90
[2023-01-16] MEDS ORDERED: TAMSULOSIN 0.4 MG CAP PO ONE (06:20)
[2023-01-16] MEDS ORDERED: KETO10TAB PO (06:40)
[2023-01-16] MEDS ORDERED: FLOM0.4C39 PO (06:40)
[2023-01-16] MEDS ORDERED: ONDA4TAB6 PO (06:41)
[2023-01-16] MEDS ORDERED: CEPH500C PO (14:53)
== END 2023-01-16 07:02 | disposition home or self-care (01) ==
LOC: M ED 04:49
DX: N20.1 Calculus of ureter (principal); N13.4 Hydroureter; I10 Essential (primary) hypertension; Z88.0 Allergy status to penicillin; Z88.2 Allergy status to sulfonamides; Z88.8 Allergy status to other drugs, medicaments and biological substances

== ENCOUNTER 2023-01-16 11:54 | Emergency (ER) | payer MEDICARE ==
[~2023-01-16] VITALS: Ht 160 cm; Wt 73.3 kg
[~2023-01-16 11:54] MED LIST changes: +FLOM0.4C39 PO; +KETO10TAB PO; +ONDA4TAB6 PO
[2023-01-16 12:49] LABS: BASO % 0.1 % (0.0-1.0); HEMATOCRIT 37.9 % (36.0-47.0); HEMOGLOBIN 12.6 g/dl (12.0-15.5); LYMPH # 0.3 10^3/uL (1.5-5.0); LYMPH % 2.3 % (24.0-44.0); MEAN CORPUSCULAR HGB CONC 33.2 g/dl (32.0-36.5); MEAN CORPUSCULAR VOLUME 87.1 fl (80.0-96.0); MONO # 0.1 10^3/uL (0.0-0.8); MONO % 1.2 % (2.0-8.0); NEUTROPHILS # 10.3 10^3/uL (1.5-8.5); NEUTROPHILS % 96.2 % (36.0-66.0); PLATELET COUNT, AUTOMATED 189 10^3/uL (150-450); RED BLOOD COUNT 4.35 10^6/uL (4.00-5.40); WHITE BLOOD COUNT 10.7 10^3/uL (4.0-10.0)
[2023-01-16 13:17] LABS: ALBUMIN 3.6 G/DL (3.2-5.2); ALKALINE PHOSPHATASE 82 U/L (46-116); ALT/SGPT 32 U/L (7.0-40); AST/SGOT 47 U/L (<34); BILIRUBIN,DIRECT 0.3 MG/DL (<0.4); LIPASE 29 U/L (12-53); TOTAL PROTEIN 6.4 G/DL (5.7-8.2)
[2023-01-16 13:53] LABS: APPEARANCE, URINE CLOUDY (CLEAR); BACTERIA, URINE AUTO 2+ (NEGATIVE); BILIRUBIN, URINE AUTO NEGATIVE (NEGATIVE); BLOOD, URINE BLOOD 2+ (NEGATIVE); COLOR, URINE YELLOW (YELLOW); GLUCOSE, URINE (UA) AUTO NEGATIVE (NEGATIVE); KETONE, URINE AUTO TRACE mg/dL (NEGATIVE); LEUKOCYTE ESTERASE, URINE AUTO 2+ (NEGATIVE); MUCUS, URINE SMALL (NEGATIVE); NITRITE, URINE AUTO POSITIVE (NEGATIVE); PROTEIN, URINE AUTO 1+ mg/dL (NEGATIVE); RBC, URINE AUTO 17 /HPF (0-3); SPECIFIC GRAVITY URINE AUTO 1.016 (1.002-1.035); SQUAMOUS EPITHELIAL CELL UR AU 5 /HPF (0-6); UROBILINOGEN, URINE AUTO 0.2 mg/dL (0.0-2.0); WBC, URINE AUTO 48 /HPF (0-3)
[2023-01-16 14:12] LABS: BLOOD UREA NITROGEN 12 MG/DL (9-23); CALCIUM LEVEL 9.1 MG/DL (8.3-10.6); CARBON DIOXIDE LEVEL 19 MMOL/L (20-31); CHLORIDE LEVEL 112 MMOL/L (98-107); GLOMERULAR FILTRATION RATE > 60.0 (>39); GLUCOSE, FASTING 161 MG/DL (74-106); POTASSIUM SERUM 5.2 MMOL/L (3.5-5.1); SODIUM LEVEL 141 MMOL/L (136-145)
[2023-01-16] MEDS ORDERED: CEPH500C PO (14:53)
[2023-01-16 15:10] VITALS: BP 119/61; TEMP 98.8; O2SAT 94
== END 2023-01-16 15:05 | disposition home or self-care (01) ==
LOC: M ED 11:54
DX: N20.1 Calculus of ureter (principal); J45.909 Unspecified asthma, uncomplicated; I10 Essential (primary) hypertension; Z88.0 Allergy status to penicillin; Z88.1 Allergy status to other antibiotic agents; Z88.2 Allergy status to sulfonamides; Z79.83 Long term (current) use of bisphosphonates; Z79.899 Other long term (current) drug therapy

== ENCOUNTER 2023-01-17 22:33 | Inpatient (IN) | payer MEDICARE ==
[~2023-01-17] VITALS: Ht 160 cm; Wt 73.0 kg
[~2023-01-17 22:33] MED LIST changes: +CEPH500C PO
[2023-01-17 23:40] LABS: HEMATOCRIT 40.1 % (36.0-47.0); HEMOGLOBIN 13.3 g/dl (12.0-15.5); MEAN CORPUSCULAR HEMOGLOBIN 28.7 pg (27.0-33.0); MEAN CORPUSCULAR HGB CONC 33.2 g/dl (32.0-36.5); MEAN CORPUSCULAR VOLUME 86.6 fl (80.0-96.0); PLATELET COUNT, AUTOMATED 103 10^3/uL (150-450); RED BLOOD COUNT 4.63 10^6/uL (4.00-5.40); WHITE BLOOD COUNT 13.4 10^3/uL (4.0-10.0)
[2023-01-17] MEDS ORDERED: KETOROLAC 30 MG/ML 1ML VIAL IV ONE (23:40)
[2023-01-17] MEDS ORDERED: ONDANSETRON 4MG 2ML VIAL IV ONE (23:40)
[2023-01-18 00:04] LABS: CALCIUM LEVEL 9.9 MG/DL (8.3-10.6); CREATININE FOR GFR 1.37 MG/DL (0.55-1.30); GLOMERULAR FILTRATION RATE 40.3 (>39); POTASSIUM SERUM 3.7 MMOL/L (3.5-5.1)
[2023-01-18] MEDS ORDERED: cefTRIAXone SOD 1 GM in D5W MINI-BAG PLUS 50 ML IV ONE (00:20)
[2023-01-18 00:46] LABS: RSV AMPLIFICATION NEGATIVE (NEGATIVE)
[2023-01-18] MEDS ORDERED: NS 1,000 ML IV ONE (00:55)
[2023-01-18] MEDS ORDERED: FLOM0.4C39 PO (01:08)
[2023-01-18] MEDS ORDERED: CEPH500C PO (01:08)
[2023-01-18] MEDS ORDERED: ONDA4TAB6 PO (01:08)
[2023-01-18] MEDS ORDERED: KETO10TAB PO (01:08)
[2023-01-18] MEDS ORDERED: ACETAMINOPHEN TAB 650MG DOSE (2X325MG) PO PRN (01:10)
[2023-01-18] MEDS ORDERED: MORPHINE 4 MG/ML 1ML VIAL IV PRN (01:10)
[2023-01-18] MEDS: NS 1,000 ML IV SCH ×3 (01:10→20:33)
[2023-01-18] MEDS ORDERED: HOME MED LIST COMPLETE! XX SCH (01:10)
[2023-01-18] MEDS ORDERED: MORPHINE 2 MG/ML 1ML VIAL IV PRN (01:10)
[2023-01-18 02:14] LABS: ALBUMIN 3.1 G/DL (3.2-5.2); BILIRUBIN,DIRECT 0.8 MG/DL (<0.4); BILIRUBIN,TOTAL 1.8 MG/DL (0.3-1.2); TOTAL PROTEIN 6.2 G/DL (5.7-8.2)
[2023-01-18 02:20] VITALS: BP 146/83; TEMP 98.1; O2SAT 95
[2023-01-18] MEDS: ONDANSETRON 4MG 2ML VIAL IV PRN ×2 (05:56→10:35)
[2023-01-18 06:00] VITALS: BP 150/84; TEMP 97.9; O2SAT 96
[2023-01-18 07:06] LABS: HEMATOCRIT 40.2 % (36.0-47.0); HEMOGLOBIN 13.4 g/dl (12.0-15.5); MEAN CORPUSCULAR HEMOGLOBIN 29.2 pg (27.0-33.0); MEAN CORPUSCULAR HGB CONC 33.3 g/dl (32.0-36.5); MEAN CORPUSCULAR VOLUME 87.6 fl (80.0-96.0); PLATELET COUNT, AUTOMATED 118 10^3/uL (150-450); RED BLOOD COUNT 4.59 10^6/uL (4.00-5.40); WHITE BLOOD COUNT 9.5 10^3/uL (4.0-10.0)
[2023-01-18 07:31] LABS: BLOOD UREA NITROGEN 27 MG/DL (9-23); CARBON DIOXIDE LEVEL 23 MMOL/L (20-31); CHLORIDE LEVEL 108 MMOL/L (98-107); GLOMERULAR FILTRATION RATE > 60.0 (>39); GLUCOSE, FASTING 127 MG/DL (74-106); MAGNESIUM LEVEL 1.6 MG/DL (1.8-2.4); POTASSIUM SERUM 5.2 MMOL/L (3.5-5.1); SODIUM LEVEL 140 MMOL/L (136-145)
[2023-01-18] MEDS: TAMSULOSIN 0.4 MG CAP PO SCH (08:22)
[2023-01-18 08:23] VITALS: BP 145/85; O2SAT 93
[2023-01-18] MEDS ORDERED: ALBUTEROL SULFATE 2.5MG/0.5ML INH NEB SOLN NEB ONE (09:00)
[2023-01-18] MEDS: ALBUTEROL SULFATE 2.5MG/0.5ML INH NEB SOLN NEB SCH ×3 (09:43→23:27)
[2023-01-18] MEDS ORDERED: methylPREDNISolone 125MG 2ML VIAL IV ONE (10:00)
[2023-01-18 11:56] LABS: BLOOD UREA NITROGEN 26 MG/DL (9-23); CALCIUM LEVEL 9.2 MG/DL (8.3-10.6); CARBON DIOXIDE LEVEL 20 MMOL/L (20-31); CHLORIDE LEVEL 110 MMOL/L (98-107); CREATININE FOR GFR 0.95 MG/DL (0.55-1.30); GLOMERULAR FILTRATION RATE > 60.0 (>39); GLUCOSE, FASTING 193 MG/DL (74-106); POTASSIUM SERUM 3.4 MMOL/L (3.5-5.1); SODIUM LEVEL 143 MMOL/L (136-145)
[2023-01-18 14:00] VITALS: BP 113/62; TEMP 97.9; O2SAT 91
[2023-01-18] MEDS ORDERED: IPRATROPIUM 0.5MG/ALBUTEROL 2.5MG INH SOL UD 3ML (DUONEB) NEB SCH (16:00)
[2023-01-18 21:10] VITALS: BP 151/72; TEMP 97.9; O2SAT 96
[2023-01-18] MEDS: cefTRIAXone SOD 1 GM in D5W MINI-BAG PLUS 50 ML IV SCH (23:51)
[2023-01-19 04:40] VITALS: BP 155/88; TEMP 97.9; O2SAT 95
[2023-01-19 06:14] LABS: BASO % 0.1 % (0.0-1.0); HEMATOCRIT 32.3 % (36.0-47.0); LYMPH # 0.4 10^3/uL (1.5-5.0); LYMPH % 3.7 % (24.0-44.0); MEAN CORPUSCULAR HEMOGLOBIN 28.8 pg (27.0-33.0); MEAN CORPUSCULAR HGB CONC 33.1 g/dl (32.0-36.5); MEAN CORPUSCULAR VOLUME 86.8 fl (80.0-96.0); MONO # 0.3 10^3/uL (0.0-0.8); MONO % 2.7 % (2.0-8.0); NEUTROPHILS # 9.3 10^3/uL (1.5-8.5); NEUTROPHILS % 92.8 % (36.0-66.0); RED BLOOD COUNT 3.72 10^6/uL (4.00-5.40); WHITE BLOOD COUNT 10.1 10^3/uL (4.0-10.0)
[2023-01-19 06:44] LABS: BLOOD UREA NITROGEN 16 MG/DL (9-23); CALCIUM LEVEL 9.2 MG/DL (8.3-10.6); CARBON DIOXIDE LEVEL 24 MMOL/L (20-31); CHLORIDE LEVEL 114 MMOL/L (98-107); CREATININE FOR GFR 0.62 MG/DL (0.55-1.30); GLOMERULAR FILTRATION RATE > 60.0 (>39); GLUCOSE, FASTING 154 MG/DL (74-106); MAGNESIUM LEVEL 1.8 MG/DL (1.8-2.4); PLATELET COUNT, AUTOMATED 86 10^3/uL (150-450); POTASSIUM SERUM 3.6 MMOL/L (3.5-5.1); SODIUM LEVEL 146 MMOL/L (136-145)
[2023-01-19 06:45] LABS: HEMOGLOBIN 10.7 g/dl (12.0-15.5)
[2023-01-19] MEDS: NS 1,000 ML IV SCH (06:49)
[2023-01-19] MEDS: ALBUTEROL SULFATE 2.5MG/0.5ML INH NEB SOLN NEB SCH (07:15)
[2023-01-19] MEDS ORDERED: D5W/0.45% SODIUM CHLORIDE 1,000 ML IV SCH (08:30)
[2023-01-19] MEDS: TAMSULOSIN 0.4 MG CAP PO SCH (08:39)
[2023-01-19] MEDS ORDERED: methylPREDNISolone 40MG 1ML VIAL IV SCH (09:00)
[2023-01-19] MEDS ORDERED: predniSONE 20 MG TAB PO SCH (09:00)
[2023-01-19 14:33] VITALS: BP 159/72; TEMP 97.7; O2SAT 96
[2023-01-19] MEDS ORDERED: ALBUTEROL SULFATE 2.5MG/0.5ML INH NEB SOLN NEB PRN (18:20)
[2023-01-19 20:30] VITALS: BP 162/89; TEMP 97.9; O2SAT 96
[2023-01-20] MEDS: cefTRIAXone SOD 1 GM in D5W MINI-BAG PLUS 50 ML IV SCH ×2
[2023-01-20 05:50] VITALS: BP 163/91; TEMP 97.9; O2SAT 97
[2023-01-20 06:19] LABS: HEMATOCRIT 36.3 % (36.0-47.0); HEMOGLOBIN 12.1 g/dl (12.0-15.5); MEAN CORPUSCULAR HEMOGLOBIN 29.4 pg (27.0-33.0); MEAN CORPUSCULAR HGB CONC 33.3 g/dl (32.0-36.5); MEAN CORPUSCULAR VOLUME 88.1 fl (80.0-96.0); PLATELET COUNT, AUTOMATED 146 10^3/uL (150-450); RED BLOOD COUNT 4.12 10^6/uL (4.00-5.40); WHITE BLOOD COUNT 13.7 10^3/uL (4.0-10.0)
[2023-01-20 06:50] LABS: ALBUMIN 2.6 G/DL (3.2-5.2); ALKALINE PHOSPHATASE 79 U/L (46-116); ALT/SGPT 38 U/L (7.0-40); AST/SGOT 14 U/L (<34); BILIRUBIN,TOTAL 0.5 MG/DL (0.3-1.2); BLOOD UREA NITROGEN 19 MG/DL (9-23); CALCIUM LEVEL 9.9 MG/DL (8.3-10.6); CARBON DIOXIDE LEVEL 26 MMOL/L (20-31); CHLORIDE LEVEL 113 MMOL/L (98-107); CREATININE FOR GFR 0.61 MG/DL (0.55-1.30); GLOMERULAR FILTRATION RATE > 60.0 (>39); GLUCOSE, FASTING 99 MG/DL (74-106); POTASSIUM SERUM 3.6 MMOL/L (3.5-5.1); SODIUM LEVEL 146 MMOL/L (136-145); TOTAL PROTEIN 5.5 G/DL (5.7-8.2)
[2023-01-20] MEDS ORDERED: ACET1TAB55 PO (07:39)
[2023-01-20] MEDS ORDERED: CEPH500C PO (07:39)
[2023-01-20] MEDS: TAMSULOSIN 0.4 MG CAP PO SCH (08:58)
[2023-01-20] MEDS ORDERED: ENOXAPARIN 40MG/0.4ML SYRINGE (J1650 PER 10MG) SC SCH (09:00)
[2023-01-20] MEDS ORDERED: predniSONE 20 MG TAB PO SCH (09:00)
[2023-01-20] MEDS ORDERED: OMEP40CA4 PO (09:37)
[2023-01-20 10:56] VITALS: BP 184/98
[2023-01-20] MEDS ORDERED: **hydrALAZINE** 10 MG TAB PO ONE (11:30)
== END 2023-01-20 13:33 | disposition home or self-care (01) | DRG 694 ==
LOC: M ED 22:33 → M ED INP 01-18 01:09 → M MSPAV 01-18 02:13
PROVIDERS: ADMIT Internal Medicine; ATTEND Internal Medicine
DX: N13.0 Hydronephrosis with ureteropelvic junction obstruction (principal); N20.1 Calculus of ureter; J45.901 Unspecified asthma with (acute) exacerbation; N13.6 Pyonephrosis; N17.9 Acute kidney failure, unspecified; N12 Tubulo-interstitial nephritis, not specified as acute or chronic; D69.6 Thrombocytopenia, unspecified; I10 Essential (primary) hypertension; N39.0 Urinary tract infection, site not specified; B96.29 Other Escherichia coli [E. coli] as the cause of diseases classified elsewhere; K21.9 Gastro-esophageal reflux disease without esophagitis; R19.7 Diarrhea, unspecified; Z88.2 Allergy status to sulfonamides; Z88.8 Allergy status to other drugs, medicaments and biological substances; Z79.899 Other long term (current) drug therapy

== ENCOUNTER 2023-06-10 11:19 | Emergency (ER) | payer MEDICARE ==
[~2023-06-10] VITALS: Ht 160 cm; Wt 70.3 kg
[~2023-06-10 11:19] MED LIST changes: +ACET1TAB55 PO; +OMEP40CA4 PO
[2023-06-10 11:20] VITALS: TEMP 98.3
[2023-06-10 12:55] LABS: INR 1.1; PROTHROMBIN TIME 13.9 SECONDS (12.5-14.5)
[2023-06-10 12:58] LABS: D-DIMER QUANT 0.35 ug/mL (<0.5)
[2023-06-10 13:07] LABS: CK-MB VALUE MASS < 1.0 NG/ML (<3.6)
[2023-06-10 13:10] LABS: CPK CREATINE PHOSPHOKINASE 25 U/L (34-145)
[2023-06-10 13:16] LABS: BASO % 0.8 % (0.0-1.0); EOS # 0.1 10^3/uL (0.0-0.5); EOS % 2.1 % (0.0-3.0); HEMATOCRIT 41.5 % (36.0-47.0); HEMOGLOBIN 13.7 g/dl (12.0-15.5); LYMPH # 1.6 10^3/uL (1.5-5.0); LYMPH % 30.8 % (24.0-44.0); MEAN CORPUSCULAR HEMOGLOBIN 28.9 pg (27.0-33.0); MEAN CORPUSCULAR VOLUME 87.6 fl (80.0-96.0); MONO # 0.3 10^3/uL (0.0-0.8); MONO % 5.4 % (2.0-8.0); NEUTROPHILS # 3.2 10^3/uL (1.5-8.5); NEUTROPHILS % 60.7 % (36.0-66.0); PLATELET COUNT, AUTOMATED 254 10^3/uL (150-450); RED BLOOD COUNT 4.74 10^6/uL (4.00-5.40); WHITE BLOOD COUNT 5.2 10^3/uL (4.0-10.0)
[2023-06-10 13:44] LABS: CK-MB VALUE MASS < 1.0 NG/ML (<3.6)
[2023-06-10 13:45] LABS: LIPASE 23 U/L (12-53)
[2023-06-10 13:46] LABS: CPK CREATINE PHOSPHOKINASE 20 U/L (34-145)
[2023-06-10 13:47] LABS: ALBUMIN 3.6 G/DL (3.2-5.2); ALKALINE PHOSPHATASE 86 U/L (46-116); ALT/SGPT 19 U/L (7.0-40); AST/SGOT 9 U/L (<34); BILIRUBIN,DIRECT 0.1 MG/DL (<0.4); BILIRUBIN,TOTAL 0.5 MG/DL (0.3-1.2); BLOOD UREA NITROGEN 12 MG/DL (9-23); CALCIUM LEVEL 10.5 MG/DL (8.3-10.6); CARBON DIOXIDE LEVEL 29 MMOL/L (20-31); CHLORIDE LEVEL 108 MMOL/L (98-107); CREATININE FOR GFR 0.67 MG/DL (0.55-1.30); GLOMERULAR FILTRATION RATE > 60.0 (>39); GLUCOSE, FASTING 79 MG/DL (74-106); POTASSIUM SERUM 4.4 MMOL/L (3.5-5.1); SODIUM LEVEL 140 MMOL/L (136-145); TOTAL PROTEIN 6.7 G/DL (5.7-8.2)
[2023-06-10 15:50] LABS: CK-MB VALUE MASS < 1.0 NG/ML (<3.6); CPK CREATINE PHOSPHOKINASE 17 U/L (34-145); MB/CK RELATIVE INDEX 5.88 (< OR =4)
[2023-06-10 16:30] VITALS: BP 165/76; O2SAT 100
== END 2023-06-10 17:08 | disposition home or self-care (01) ==
LOC: M ED 11:19
DX: R07.9 Chest pain, unspecified (principal); R00.1 Bradycardia, unspecified; I25.2 Old myocardial infarction; I10 Essential (primary) hypertension; K21.9 Gastro-esophageal reflux disease without esophagitis; J45.909 Unspecified asthma, uncomplicated; Z88.0 Allergy status to penicillin; Z88.1 Allergy status to other antibiotic agents; Z88.2 Allergy status to sulfonamides; Z88.8 Allergy status to other drugs, medicaments and biological substances; Z79.1 Long term (current) use of non-steroidal anti-inflammatories (NSAID)

== ENCOUNTER → 2023-07-26 | Outpatient (CLI) | payer MEDICARE | LOC: M RAD 15:02 | PROVIDERS: ATTEND Specialist | DX: N13.9 Obstructive and reflux uropathy, unspecified (principal); N28.1 Cyst of kidney, acquired ==

== ENCOUNTER → 2024-08-28 | Outpatient (CLI) | payer MEDICARE ==
[~2024-08-28] MED LIST changes: -FLOM0.4C39 PO; +ONDA-282 PO; -ONDA4TAB6 PO; +TAMS-18 PO
== END ==
LOC: M RAD 15:05
PROVIDERS: ATTEND Specialist
DX: N28.1 Cyst of kidney, acquired (principal)